=== PATIENT | female | born 1985 | race African-American/Black ===

== ENCOUNTER 2016-09-21 19:34 | Emergency (ER) | payer OTHER ==
[~2016-09-21] VITALS: Ht 165.1 cm; Wt 39.0 kg
[~2016-09-21 19:34] MED LIST: ACET325T96 PO; CALC600T9 PO; CPR500 PO; DILT120C68 PO; DIPH25CA37 PO; DOCU-94 PO; FENOFIBRATE PO; FURO40TA3 PO; IMURAN PO; LBT/100 PO; LORA-741 PO; MULT-506 PO; ONDA4TAB10 SL; PLQ200 PO; PRLSR20 PO; SENNEXT PO
[2016-09-21 19:38] VITALS: TEMP 37; Ht 165.1 cm; Wt 39.0 kg
[2016-09-21 20:52] VITALS: O2SAT 100
[2016-09-21] MEDS ORDERED: SODIUM CHLORIDE 0.9% 1000ML 500 ML IV STA (21:01)
[2016-09-21] MEDS ORDERED: SODIUM CHLORIDE 0.9% 1000ML 1,000 ML IV STA (21:01)
--- NOTE | 2016-09-21 21:10 | EMERGENCY ROOM VISIT NOTE ---
History Report prepared by Marcos: Molina Rodriguez Under the Supervision of: Dr. Varinder Robbins M.D. First contact with patient: 20:56 Chief Complaint: FLU LIKE SX Stated Complaint: HEADACHE,SOB,FATIGUE,CONGESTION,FLU History of Present Illness The patient is a 31 year old female who presents to the Emergency Room with complaints of a persistent illness beginning 2 to 3 days ago. She notes that she has been becoming short of breath and fatigued with mild physical activity, and notes having a subjective fever, productive cough with yellow sputum, congestion, and nausea. She denies having any vomiting or diarrhea, or foul smelling urine. She has taken Tylenol for the fever. The patient states she has lupus and T10 transverse myelitis and uses a wheelchair as she has no function of her legs. The patient notes occasionally feeling heart palpitations and that she is on heart medication. She did not receive the flu shot this year. She last ate this morning. Source of History: patient Onset: 2 to 3 days ago Position: other (global) Quality: other (illness) Timing: other (persistent) Associated Symptoms: + cough, + fevers, + nausea, No diarrhea, No urinary symptoms, No vomiting Review of Systems See HPI for pertinent positives & negatives. A total of 10 systems reviewed and were otherwise negative. Past Medical & Surgical Medical Problems: (1) Lupus (2) Osteomyelitis (3) Transverse myelitis Family History Diabetes mellitus Hypertension Social History Smoking Status: Never Smoker Alcohol Use: none Drug Use: none Marital Status: single Housing Status: lives with family Occupation Status: disabled Current/Historical Medications Scheduled Albuterol Hfa (Ventolin Hfa), 2 PUFFS INH Q4 Azathioprine (Imuran), 75 MG PO DAILY Calcium Carbonate-Vitamin D (Calcium + D), 500 MG PO BID Cholecalciferol (Vitamin D3), 1,000 UNITS PO DAILY Docusate Sodium (Colace), 100 MG PO DAILY Fenofibrate (Tricor), 200 MG PO DAILY Ferrous Sulfate (Ferrous Sulfate), TAB PO DAILY Hydroxychloroquine Sulfate (Plaquenil), 200 MG PO DAILY Metoprolol Succ (Toprol Xl) (Toprol-Xl), 25 MG PO DAILY Multivitamin (Multivitamin), 1 TAB PO DAILY Oxybutynin Chloride (Ditropan), 5 MG PO TID Potassium Ext Rel (Klor-Con), 20 MEQ PO BID Scheduled PRN Senna (Bulk) (Senna), 2 TAB PO DAILY PRN for Constipation Allergies Coded Allergies: Apricot (Verified Allergy, Severe, LIPS AND MOUTH SWELL, 09/21/16) Black Pepper (Verified Allergy, Severe, LIPS AND MOUTH SWELL, 09/21/16) Carrot (Verified Allergy, Severe, MOUTH AND LIPS SWELL, 09/21/16) Celery (Verified Allergy, Severe, LIPS AND MOUTH SWELL, 09/21/16) [place] (Verified Allergy, Severe, LIPS AND MOUTH SWELL, 09/21/16) Fish Allergy (Verified Allergy, Severe, ANAPHYLAXIS, 09/21/16) Lemon (Verified Allergy, Severe, MOUTH AND LIPS SWOLLEN, 09/21/16) Pea (Verified Allergy, Severe, LIPS AND MOUTH SWELL, 09/21/16) Peanut (Verified Allergy, Severe, ANAPHYLAXIS, 09/21/16) [place] (Verified Allergy, Severe, ANAPHYLAXIS, 09/21/16) Shellfish (Verified Allergy, Severe, ANAPHYLAXIS, 09/21/16) Adhesives (Verified Allergy, Intermediate, SKIN GETS RED AND PAINFUL, 09/21) Blueberry (Verified Allergy, Intermediate, LIPS AND MOUTH SWELL, 09/21/16) Dust (Verified Allergy, Intermediate, SNEEZING AND COUGHING, 09/21/16) Latex1 -Allergic Contact Dermititis (Verified Allergy, Intermediate, SKIN GETS RED AND PAINFUL, 09/21/16) Molds and Smuts (Verified Allergy, Intermediate, SNEEZING AND COUGHING, ) Ertapenem (Unverified Allergy, Unknown, HIVES, 09/21/16) Milk (Verified Adverse Reaction, Unknown, GI SYMPTOMS, 09/21/16) Lips and mouth swell when drinking milk, however pt does eat cheese Uncoded Allergies: carmichael noe (Allergy, Intermediate, lips and mouth swell, 10/28/14) Physical Exam Vital Signs Date Time Temp Pulse Resp B/P Pulse Ox O2 Delivery O2 Flow Rate FiO2 09/21/16 23:20 98 16 132/79 100 Room Air 09/21/16 22:30 91 16 114/79 09/21/16 21:20 95 09/21/16 20:52 100 Room Air 09/21/16 20:51 93 18 130/84 100 Room Air 09/21/16 19:38 37.0 115 18 112/82 100 Room Air Physical Exam GENERAL: Patient is in no acute distress. HEENT: No acute trauma, normocephalic atraumatic, mucous membranes moist, no nasal congestion, no scleral icterus. No throat erythema or exudate. NECK: No stridor, no adenopathy, no meningismus, trachea is midline. LUNGS: Clear to auscultation bilaterally, no wheeze, no rhonchi, breath sounds equal. HEART: Mildly tachycardic with regular rhythm; no murmurs. ABDOMEN: Soft, nontender, bowel sounds positive, no hernias, no peritonitis. EXTREMITIES: No cyanosis or edema, full range of motion of all the joints without pain or difficulty, no signs for acute trauma. NEUROLOGIC: Awake and oriented x3. Paraplegia consistent with T10 transverse myelitis. SKIN: No rash, no jaundice, no diaphoresis. Medical Decision & Procedures ER Provider Diagnostic Interpretation: Radiology results are stated below per my review and radiologist interpretation: CHEST ONE VIEW PORTABLE FINDINGS: The cardiac and mediastinal contours are normal. There is no evidence of focal pulmonary consolidation. There is no evidence of failure. No pleural effusions are visualized.[ There is a thoracolumbar scoliosis IMPRESSION: No active disease in the chest. Electronically signed by: Bull Robins M.D. 09/21/2016 9:21 PM Dictated Date/Time: 09/21/2016 9:21 PM Laboratory Results 09/21/16 21:50 Red Blood Count 4.44, Mean Corpuscular Volume 84.9, Mean Corpuscular Hemoglobin 29.5, Mean Corpuscular Hemoglobin Concent 34.7, Mean Platelet Volume 10.1, Neutrophils (%) (Auto) 66.2, Lymphocytes (%) (Auto) 20.8, Monocytes (%) (Auto) 7.6, Eosinophils (%) (Auto) 4.4, Basophils (%) (Auto) 0.7, Neutrophils # (Auto) 5.85, Lymphocytes # (Auto) 1.84, Monocytes # (Auto) 0.67, Eosinophils # (Auto) 0.39, Basophils # (Auto) 0.06 09/21/16 21:50 Test 09/21/16 21:45 09/21/16 21:50 09/21/16 22:06 Influenza Type A Antigen Neg for Influ A (NEG) Influenza Type B Antigen Neg for Influ B (NEG) White Blood Count 8.84 K/uL (4.8-10.8) Red Blood Count 4.44 M/uL (4.2-5.4) Hemoglobin 13.1 g/dL (12.0-16.0) Hematocrit 37.7 % (37-47) Mean Corpuscular Volume 84.9 fL (80-100) Mean Corpuscular Hemoglobin 29.5 pg (25-34) Mean Corpuscular Hemoglobin Concent 34.7 g/dl (32-36) Platelet Count 385 K/uL (130-400) Mean Platelet Volume 10.1 fL (7.4-10.4) Neutrophils (%) (Auto) 66.2 % Lymphocytes (%) (Auto) 20.8 % Monocytes (%) (Auto) 7.6 % Eosinophils (%) (Auto) 4.4 % Basophils (%) (Auto) 0.7 % Neutrophils # (Auto) 5.85 K/uL (1.4-6.5) Lymphocytes # (Auto) 1.84 K/uL (1.2-3.4) Monocytes # (Auto) 0.67 K/uL (0.11-0.59) Eosinophils # (Auto) 0.39 K/uL (0-0.5) Basophils # (Auto) 0.06 K/uL (0-0.2) RDW Standard Deviation 52.1 fL (36.4-46.3) RDW Coefficient of Variation 16.6 % (11.5-14.5) Immature Granulocyte % (Auto) 0.3 % Immature Granulocyte # (Auto) 0.03 K/uL (0.00-0.02) Prothrombin Time 13.1 SECONDS (9.0-12.0) Prothromb Time International Ratio 1.2 (0.9-1.1) Activated Partial Thromboplast Time 32.4 SECONDS (21.0-31.0) Partial Thromboplastin Ratio 1.2 Anion Gap 10.0 mmol/L (3-11) Est Creatinine Clear Calc Drug Dose 87.2 ml/min Estimated GFR () 142.2 Estimated GFR (Non- 122.7 BUN/Creatinine Ratio 21.2 (10-20) Calcium Level 9.3 mg/dl (8.5-10.1) Magnesium Level 2.0 mg/dl (1.8-2.4) Total Bilirubin 0.4 mg/dl (0.2-1) Aspartate Amino Transf (AST/SGOT) 50 U/L (15-37) Alanine Aminotransferase (ALT/SGPT) 59 U/L (12-78) Alkaline Phosphatase 84 U/L (45-117) Troponin I < 0.015 ng/ml (0-0.045) Total Protein 8.2 gm/dl (6.4-8.2) Albumin 3.9 gm/dl (3.4-5.0) Globulin 4.3 gm/dl (2.5-4.0) Albumin/Globulin Ratio 0.9 (0.9-2) Urine Color YELLOW Urine Appearance CLEAR (CLEAR) Urine pH 7.0 (4.5-7.5) Urine Specific [place] 1.000 (1.000-1.030) Urine Protein NEG (NEG) Urine Glucose (UA) NEG (NEG) Urine Ketones NEG (NEG) Urine Occult Blood NEG (NEG) Urine Nitrite NEG (NEG) Urine Bilirubin NEG (NEG) Urine Urobilinogen NEG (NEG) Urine Leukocyte Esterase NEG (NEG) Laboratory results reviewed by me. Medications Administered Medications (Trade) Dose Ordered Sig/Moustapha Route Start Time Stop Time Status Last Admin Dose Admin Sodium Chloride 500 ml @ 999 mls/hr Q31M STAT IV 09/21/16 21:01 09/21/16 21:31 DC 09/21/16 21:53 999 MLS/HR Sodium Chloride (Nss 1000ml) 1,000 ml @ 200 mls/hr Q5H STAT IV 09/21/16 21:01 09/22/16 02:00 09/21/16 21:53 200 MLS/HR Albuterol (Ventolin Hfa Inhaler) 3 puffs NOW ONCE INH 09/21/16 23:00 09/21/16 23:01 DC 09/21/16 23:21 3 PUFFS ECG Indication: other (illness) Rate (beats per minute): 98 Rhythm: normal sinus Findings: no acute ischemic change, other (old lateral infarct) ED Course 2057: The patient was evaluated in room B3B. A complete history and physical exam was performed. 2100: Ordered NSS 1,000 ml @ 200 mls/hr IV, and NSS 500 ml @ 999 mls/hr IV. 2300: Ordered Albuterol 3 puffs INH. 2305: Reevaluated the patient. Discussed results and discharge instructions: She verbalized understanding and agreement. The patient is ready for discharge. Medical Decision Differentials include bronchitis, pneumonia, dehydration, electrolyte imbalance , anemia, UTI, and influenza. There is no leukocytosis or concerning anemia. No significant electrolyte abnormality, kidney failure, hepatitis. EKG shows a sinus rhythm, no acute ischemia. Cardiac enzyme testing 1 is not consistent with acute cardiac injury. Chest x-ray does not show pneumonia or CHF. There is no mediastinal widening. Influenza testing is negative. Blood cultures are pending. Urinalysis does not show infection. On exam, the patient was not febrile, toxic or hypoxic. The patient received IV saline, she was given albuterol via MDI. The patient has an upper respiratory infection which has caused a bronchitis. She is stable for discharge, antibiotics are not indicated. She was reassured. She will rest, hydration was encouraged. She can use the albuterol for cough and congestion. Close outpatient family doctor follow-up was suggested. Impression Primary Impression: Acute bronchitis Scribe Attestation The scribe's documentation has been prepared under my direction and personally reviewed by me in its entirety. I confirm that the note above accurately reflects all work, treatment, procedures, and medical decision making performed by me. Departure Information Dispostion Home / Self-Care Prescriptions Albuterol Hfa (VENTOLIN HFA) 200 Puffs/[id number] Mcg Aers 2 PUFFS INH Q4, #1 INHALER Prov: Varinder Robbins M.D. 09/21/16 Referrals Jewel Wallace M.D. (PCP) Patient Instructions My [facility] Additional Instructions albuterol 2 puffs every 4 hours to help the cough and breathing rest fluids--stay well hydrated see your fam md this week return for worsening symptoms no pneumonia by xray today
--- NOTE | 2016-09-21 21:23 | DIAGNOSTIC IMAGING REPORT ---
CHEST ONE VIEW PORTABLE CLINICAL HISTORY: Respiratory distress COMPARISON STUDY: 06/24/2016 FINDINGS: The cardiac and mediastinal contours are normal. There is no evidence of focal pulmonary consolidation. There is no evidence of failure. No pleural effusions are visualized.[ There is a thoracolumbar scoliosis IMPRESSION: No active disease in the chest. Electronically signed by: Bull Robins M.D. 09/21/2016 9:21 PM Dictated Date/Time: 09/21/2016 9:21 PM
[2016-09-21] MEDS ORDERED: FENO200C6 PO (21:29)
[2016-09-21] MEDS ORDERED: DOCU-94 PO (21:30)
[2016-09-21] MEDS ORDERED: CHOL1000 PO (21:33)
[2016-09-21] MEDS ORDERED: POTA20TA16 PO (21:39)
[2016-09-21] MEDS ORDERED: OXYB5TAB74 PO (21:41)
[2016-09-21] MEDS ORDERED: METO25TA3 PO (21:43)
[2016-09-21] MEDS ORDERED: AZAT50TA5 PO (21:49)
[2016-09-21 22:04] LABS: BASO % 0.7 %; BASO ABS # 0.06 K/uL (0-0.2); COMPLETE YES; EOS % 4.4 %; HEMATOCRIT 37.7 % (37-47); IG% 0.3 %; LYMPH % 20.8 %; LYMPH ABS # 1.84 K/uL (1.2-3.4); MEAN CELL VOLUME 84.9 fL (80-100); MEAN CORPUSCULAR HEMOGLOBIN 29.5 pg (25-34); MEAN CORPUSCULAR HGB CONC 34.7 g/dl (32-36); MEAN PLATELET VOLUME 10.1 fL (7.4-10.4); MONO % 7.6 %; NEUT % 66.2 %; PLATELET COUNT 385 K/uL (130-400); RED BLOOD COUNT 4.44 M/uL (4.2-5.4); WHITE BLOOD COUNT 8.84 K/uL (4.8-10.8)
[2016-09-21 22:15] LABS: INR 1.2 (0.9-1.1); PARTIAL THROMBOPLASTIN RATIO 1.2; PROTHROMBIN TIME (PATIENT) 13.1 SECONDS (9.0-12.0)
[2016-09-21 22:21] LABS: URINE APPEARANCE CLEAR (CLEAR); URINE BILIRUBIN NEG (NEG); URINE COLOR YELLOW; URINE NITRITE NEG (NEG); UROBILINOGEN NEG (NEG); ZZURINE CULT IF INDIC CATH NO
[2016-09-21 22:24] LABS: ALT/SGPT 59 U/L (12-78); BLOOD UREA NITROGEN 12 mg/dl (7-18); BUN/CREATININE RATIO 21.2 (10-20); CALCIUM 9.3 mg/dl (8.5-10.1); CARBON DIOXIDE 20 mmol/L (21-32); CHLORIDE 107 mmol/L (98-107); CREATININE 0.57 mg/dl (0.60-1.20); GLUCOSE 82 mg/dl (70-99); POTASSIUM 3.6 mmol/L (3.5-5.1); SODIUM 137 mmol/L (136-145)
[2016-09-21 22:25] LABS: MANUAL MICROSCOPIC REQUIRED? NO; REVIEW REQ? NO
[2016-09-21 22:29] LABS: ALB/GLOB RATIO 0.9 (0.9-2); ALKALINE PHOSPHATASE 84 U/L (45-117); AST/SGOT 50 U/L (15-37)
[2016-09-21] MEDS ORDERED: ALBUTEROL HFA 8 GM INHALER INH ONE (23:00)
[2016-09-21] MEDS ORDERED: VNTHFA/IN INH (23:01)
[2016-09-21 23:20] VITALS: BP 132/79; PULSE 98; O2SAT 100
[2017-02-13] MEDS ORDERED: FERR324T4 PO (16:12)
== END 2016-09-21 23:31 | disposition home or self-care (01) ==
LOC: C.EDB 19:36
DX: J20.9 Acute bronchitis, unspecified (principal); L93.0 Discoid lupus erythematosus; M86.9 Osteomyelitis, unspecified

== ENCOUNTER 2016-10-08 18:31 | Emergency (ER) | payer OTHER ==
[~2016-10-08 18:31] MED LIST changes: -ACET325T96 PO; +AZAT50TA5 PO; +CHOL1000 PO; -CPR500 PO; -DILT120C68 PO; -DIPH25CA37 PO; +FENO200C6 PO; -FENOFIBRATE PO; -FURO40TA3 PO; -IMURAN PO; -LBT/100 PO; -LORA-741 PO; +METO25TA3 PO; -ONDA4TAB10 SL; +OXYB5TAB74 PO; -PLQ200 PO; +POTA20TA16 PO; -PRLSR20 PO; +VNTHFA/IN INH
[2016-10-08 18:47] VITALS: TEMP 37; Ht 165.1 cm
--- NOTE | 2016-10-08 20:06 | DIAGNOSTIC IMAGING REPORT ---
Venous Doppler right leg RIGHT VENOUS DOPP LOWER EXT UNILAT CLINICAL HISTORY: Right thigh swelling Right pain. Edema. TECHNIQUE: Ultrasound COMPARISON STUDY: None FINDINGS: Normal study IMPRESSION: Normal study Electronically signed by: Gato Mcneill M.D. 10/08/2016 8:05 PM Dictated Date/Time: 10/08/2016 8:04 PM
[2016-10-08] MEDS ORDERED: LORAZEPAM 2 MG/ML 1 ML VIAL ONE (20:34)
--- NOTE | 2016-10-08 20:47 | DIAGNOSTIC IMAGING REPORT ---
RIGHT FEMUR 2 VIEWS ROUTINE CLINICAL HISTORY: Right thigh swelling Right pain. Edema. COMPARISON: None. DISCUSSION: The bones and joint spaces appear intact. There is no evidence of fracture, dislocation or bony disease. There is no evidence for soft tissue swelling. IMPRESSION: Negative study. Electronically signed by: Gato Mcneill M.D. 10/08/2016 8:46 PM Dictated Date/Time: 10/08/2016 8:45 PM
[2016-10-08 21:34] VITALS: BP 103/64; PULSE 95; O2SAT 99
--- NOTE | 2016-10-09 11:45 | EMERGENCY ROOM VISIT NOTE ---
History First contact with patient: 18:56 Chief Complaint: SWELLING TO EXTREMITY Stated Complaint: SWELLING ON RIGHT THIGH History of Present Illness The patient is a 31 year old female who presents to the Emergency Room with complaints of swelling and dull achiness to her right thigh. The patient states that she noticed her symptoms 2 or 3 days ago and has had notable swelling. She is a paraplegic and does not have distinct sensation to her lower extremities. She does feel a deep ache however, which is atypical for her. She has not had fever, chills, chest pain, chest tightness, or shortness of breath. She reports having a thrombophlebitis of this leg after a femoral line placement several years ago. She does not regularly have discomfort like this. She states that she could have dislocated her hip after moving awkwardly a few days ago, but again she does not feel pain and is not able to tell. She rates her overall discomfort a 0/10. Review of Systems More than 10 systems were reviewed and otherwise negative with the exception of history of present illness. Past Medical/Surgical History Medical Problems: (1) Lupus (2) Osteomyelitis (3) Transverse myelitis Family History Diabetes mellitus Hypertension Social History Smoking Status: Never Smoker Alcohol Use: none Drug Use: none Marital Status: single Housing Status: lives with family Occupation Status: disabled Current/Historical Medications Scheduled Albuterol Hfa (Ventolin Hfa), 2 PUFFS INH Q4 Azathioprine (Imuran), 75 MG PO DAILY Calcium Carbonate-Vitamin D (Calcium + D), 500 MG PO BID Cholecalciferol (Vitamin D3), 1,000 UNITS PO DAILY Docusate Sodium (Colace), 100 MG PO DAILY Fenofibrate (Tricor), 200 MG PO DAILY Ferrous Sulfate (Ferrous Sulfate), TAB PO DAILY Hydroxychloroquine Sulfate (Plaquenil), 200 MG PO DAILY Metoprolol Succ (Toprol Xl) (Toprol-Xl), 25 MG PO DAILY Multivitamin (Multivitamin), 1 TAB PO DAILY Oxybutynin Chloride (Ditropan), 5 MG PO TID Potassium Ext Rel (Klor-Con), 20 MEQ PO BID Scheduled PRN Senna (Bulk) (Senna), 2 TAB PO DAILY PRN for Constipation Allergies Coded Allergies: Apricot (Verified Allergy, Severe, LIPS AND MOUTH SWELL, 10/08/16) Black Pepper (Verified Allergy, Severe, LIPS AND MOUTH SWELL, 10/08/16) Carrot (Verified Allergy, Severe, MOUTH AND LIPS SWELL, 10/08/16) Celery (Verified Allergy, Severe, LIPS AND MOUTH SWELL, 10/08/16) [place] (Verified Allergy, Severe, LIPS AND MOUTH SWELL, 10/08/16) Fish Allergy (Verified Allergy, Severe, ANAPHYLAXIS, 10/08/16) Lemon (Verified Allergy, Severe, MOUTH AND LIPS SWOLLEN, 10/08/16) Pea (Verified Allergy, Severe, LIPS AND MOUTH SWELL, 10/08/16) Peanut (Verified Allergy, Severe, ANAPHYLAXIS, 10/08/16) [place] (Verified Allergy, Severe, ANAPHYLAXIS, 10/08/16) Shellfish (Verified Allergy, Severe, ANAPHYLAXIS, 10/08/16) Adhesives (Verified Allergy, Intermediate, SKIN GETS RED AND PAINFUL, 10/08) Blueberry (Verified Allergy, Intermediate, LIPS AND MOUTH SWELL, 09/21/16) Dust (Verified Allergy, Intermediate, SNEEZING AND COUGHING, 10/08/16) Latex1 -Allergic Contact Dermititis (Verified Allergy, Intermediate, SKIN GETS RED AND PAINFUL, 10/08/16) Molds and Smuts (Verified Allergy, Intermediate, SNEEZING AND COUGHING, ) Ertapenem (Unverified Allergy, Unknown, HIVES, 10/08/16) Milk (Verified Adverse Reaction, Unknown, GI SYMPTOMS, 10/08/16) Lips and mouth swell when drinking milk, however pt does eat cheese Uncoded Allergies: carmichael noe (Allergy, Intermediate, lips and mouth swell, 10/28/14) Physical Exam Vital Signs Date Time Temp Pulse Resp B/P Pulse Ox O2 Delivery O2 Flow Rate FiO2 10/08/16 21:34 95 18 103/64 99 10/08/16 21:30 95 18 103/64 99 Room Air 10/08/16 18:47 37.0 82 18 99 Room Air Pain Rating (0-10): 0 Physical Exam VITALS: Vitals are noted on the nurse's note and reviewed by myself. Vital signs stable. GENERAL: Well-developed, well-nourished, female, who is in no acute distress and resting comfortably. Patient is cooperative with the examination. HEAD: Normocephalic atraumatic. HEART: Regular rate and rhythm without murmurs gallops or rubs. LUNGS: Clear to auscultation bilaterally without wheezes, rales or rhonchi. No retractions or accessory muscle use. MUSCULOSKELETAL: There is mild swelling appreciated in the right thigh when compared to the left. The patient does not have sensation throughout the thigh which is chronic. No palpable cords or erythema appreciated. NEURO: Patient was alert and oriented to person place and time. CN II through XII grossly intact. Medical Decision & Procedures ER Provider Diagnostic Interpretation: Venous Doppler right leg RIGHT VENOUS DOPP LOWER EXT UNILAT CLINICAL HISTORY: Right thigh swelling Right pain. Edema. TECHNIQUE: Ultrasound COMPARISON STUDY: None FINDINGS: Normal study IMPRESSION: Normal study RIGHT FEMUR 2 VIEWS ROUTINE CLINICAL HISTORY: Right thigh swelling Right pain. Edema. COMPARISON: None. DISCUSSION: The bones and joint spaces appear intact. There is no evidence of fracture, dislocation or bony disease. There is no evidence for soft tissue swelling. IMPRESSION: Negative study. ED Course Physical exam and history were performed. Nursing notes and EMR were reviewed. Patient appears to have swelling to her right thigh without distinct injury. The patient is paraplegic and does not have pain sensation in this area, but does describe a pressure that is atypical for her. Ultrasound and x-rays were performed. There is no evidence of DVT on ultrasound, and no bony abnormality appreciated on x-ray. Overall the patient's symptoms may be a dependent edema, however based on her past medical history did recommend that she have close follow-up with her PCP. The patient is to elevate her leg for comfort and decrease swelling. The patient was very pleased with this and voiced understanding. She will contact her primary care physician's office and was otherwise invited the ER with any new, worsening, or concerning symptoms. The chart was completed utilizing [employer] Speech Voice Recognition Software. Grammatical errors, random word insertions, pronoun errors, and incomplete sentences are an occasional consequence of this system due to software limitations, ambient noise, and hardware issues. Any formal questions or concerns about the content, text, or information contained within the body of this dictation should be directly addressed to the provider for clarification. . Medical Decision Differential diagnosis: Etiologies such as DVT, musculoskeletal, infection, joint effusion, trauma, lymphedema, idiopathic, CHF, as well as others were entertained.. Impression Primary Impression: Swelling of lower extremity Departure Information Dispostion Home / Self-Care Condition GOOD Forms HOME CARE DOCUMENTATION FORM, IMPORTANT VISIT INFORMATION Patient Instructions My [facility] Additional Instructions You were seen and evaluated today on an emergency basis only. This is not a substitute for, or an effort to provide, complete comprehensive medical care. It is not possible to recognize and treat all injuries or illnesses in a single emergency department visit. For this reason it is recommended that you followup with your primary care physician as scheduled for ongoing care and evaluation. Elevate your leg for additional relief of symptoms. You are welcome to return to the emergency department anytime with new, worsening, or concerning symptoms.
[2017-02-13] MEDS ORDERED: FERR324T4 PO (16:12)
== END 2016-10-08 21:35 | disposition home or self-care (01) ==
LOC: C.EDB 18:32 → C.EDD 21:35
DX: M79.89 Other specified soft tissue disorders (principal); L93.0 Discoid lupus erythematosus; M86.9 Osteomyelitis, unspecified

== ENCOUNTER 2017-02-13 16:41 | Emergency (ER) | payer OTHER ==
[~2017-02-13] VITALS: Ht 165.1 cm; Wt 40.0 kg
[~2017-02-13 16:41] MED LIST changes: +FERR324T4 PO
[2017-02-13 16:43] VITALS: TEMP 37.2; Ht 165.1 cm; Wt 40.0 kg
[2017-02-13] MEDS ORDERED: SODIUM CHLORIDE 0.9% 1000ML 1,000 ML IV STA ×2 (17:12→19:36)
--- NOTE | 2017-02-13 17:32 | DIAGNOSTIC IMAGING REPORT ---
CHEST ONE VIEW PORTABLE CLINICAL HISTORY: Chest pressure, tachycardia, palpitations. Left arm pain and weakness. COMPARISON STUDY: 09/21/2016 FINDINGS: The cardiac and mediastinal contours are normal. There is no evidence of focal pulmonary consolidation. There is no evidence of failure. No pleural effusions are visualized.[ There is a thoracolumbar scoliosis. IMPRESSION: No active disease in the chest. Electronically signed by: Bull Robins M.D. 02/13/2017 5:31 PM Dictated Date/Time: 02/13/2017 5:30 PM
[2017-02-13 17:54] LABS: BASO ABS # 0.06 K/uL (0-0.2); COMPLETE YES; EOS % 2.2 %; HEMATOCRIT 35.8 % (37-47); IG% 0.5 %; LYMPH ABS # 1.57 K/uL (1.2-3.4); MEAN CELL VOLUME 84.2 fL (80-100); MEAN CORPUSCULAR HEMOGLOBIN 29.4 pg (25-34); MEAN CORPUSCULAR HGB CONC 34.9 g/dl (32-36); MEAN PLATELET VOLUME 9.4 fL (7.4-10.4); MONO % 11.5 %; NEUT % 59.8 %; PLATELET COUNT 445 K/uL (130-400); RED BLOOD COUNT 4.25 M/uL (4.2-5.4); WHITE BLOOD COUNT 6.27 K/uL (4.8-10.8)
[2017-02-13 18:04] LABS: INR 1.2 (0.9-1.1)
[2017-02-13 18:16] LABS: ALT/SGPT 81 U/L (12-78); BLOOD UREA NITROGEN 13 mg/dl (7-18); BUN/CREATININE RATIO 15.1 (10-20); CALCIUM 8.8 mg/dl (8.5-10.1); CARBON DIOXIDE 24 mmol/L (21-32); CHLORIDE 108 mmol/L (98-107); CREATININE 0.86 mg/dl (0.60-1.20); GLUCOSE 76 mg/dl (70-99); MAGNESIUM 1.7 mg/dl (1.8-2.4); POTASSIUM 3.6 mmol/L (3.5-5.1); SODIUM 141 mmol/L (136-145)
[2017-02-13 18:27] LABS: ALB/GLOB RATIO 0.9 (0.9-2); ALKALINE PHOSPHATASE 81 U/L (45-117); AST/SGOT 76 U/L (15-37)
[2017-02-13] MEDS ORDERED: OPTIRAY 320 IV PRN (18:30)
[2017-02-13] MEDS ORDERED: DiphenhydrAMINE HCL 50 MG/ML VIAL IV STA (19:36)
[2017-02-13] MEDS ORDERED: DiphenhydrAMINE HCL 50 MG/ML VIAL ONE (19:37)
--- NOTE | 2017-02-13 19:46 | DIAGNOSTIC IMAGING REPORT ---
CT ANGIOGRAM OF THE CHEST CLINICAL HISTORY: Cough, atypical chest pain, elevated d-dimer COMPARISON STUDY: Chest x-ray dated 02/13/2017 TECHNIQUE: Following the IV administration of 66 mL of [id number]-320, CT angiogram of the thorax was performed from the thoracic inlet to the lung bases utilizing the pulmonary embolus protocol. Images are reviewed in the axial, sagittal, and coronal planes. IV contrast was administered without complication. MIP imaging was performed. A dose lowering technique was utilized adhering to the principles of ALARA. CT DOSE: 176.41 mGy.cm FINDINGS: No pathologically enlarged axillary mediastinal or hilar lymph nodes were visualized. There was no evidence of thoracic aortic dilatation. There were no pulmonary artery filling defects to indicate acute pulmonary embolism. No pleural effusions are visualized. There was no evidence of focal pulmonary consolidation. The examination is compromised due to respiratory motion artifact IMPRESSION: 1. No evidence of pulmonary embolism 2. No evidence of focal pulmonary consolidation 3. No evidence of pathologic adenopathy Electronically signed by: Bull Robins M.D. 02/13/2017 7:44 PM Dictated Date/Time: 02/13/2017 7:41 PM
[2017-02-13 20:20] LABS: URINE APPEARANCE CLEAR (CLEAR); URINE BILIRUBIN NEG (NEG); URINE COLOR YELLOW; URINE NITRITE NEG (NEG); URINE SPECIFIC GRAVITY 1.017 (1.000-1.030); UROBILINOGEN NEG (NEG)
[2017-02-13 20:32] LABS: MANUAL MICROSCOPIC REQUIRED? NO; REVIEW REQ? NO
[2017-02-13] MEDS ORDERED: MAGNESIUM SULFATE 1GM / D5W 1 GM BAG IV STA (20:39)
[2017-02-13] MEDS ORDERED: ALUMINUM/MAGNESIUM SUSP 30 ML UDC PO STA (20:50)
[2017-02-13] MEDS ORDERED: ACETAMINOPHEN 325 MG TAB PO STA (20:50)
[2017-02-13] MEDS ORDERED: PANTOprazole INJ 40 MG in SYRINGE 0 ML IV ONE (21:00)
[2017-02-13] MEDS ORDERED: HYDR200T5 PO (21:45)
--- NOTE | 2017-02-13 23:06 | EMERGENCY ROOM VISIT NOTE ---
History Report prepared by Marcos: rSinivasan Duong Under the Supervision of: Dr. Roxann Moffett D.O. First contact with patient: 16:48 Chief Complaint: PALPITATIONS Stated Complaint: SORETHROAT,FATIGUE,WEAKNESS,LF ARM PAIN,PALPITATIO History of Present Illness The patient is a 31 year old female who presents to the Emergency Room with complaints of a resolving generalized illness that started yesterday. She rates her pain as a 3/10 in severity. The patient states that she was experiencing shooting pain from her left shoulder to her left arm, fatigue, shortness of breath, fever, dry coughing, a sore throat, and heart palpitations. She reports that yesterday her rate was around 116 and she felt chest tightness. She states that today her temperature was 98.4 and she was no longer experiencing heart palpitations, but admits she still has a sore throat and now abdominal pain. The patient states that she usually is tachycardic, which is worsened with movement, hypertensive, and has edema to her lower extremities when she sits for long periods of time. She states that she has been constipated for over a week, but was able to have a bowel movement yesterday. The patient admits that she has been around a family member who has been sick recently. She states that she currently takes a blood pressure medication due to her history of kidney failure. The patient states that her kidneys have been functioning well lately and her blood pressure does has gone down. She also reports a history of lupus, nephritis, and recurrent UTIS, which she has recently finished her antibiotics for. The patient denies rhinorrhea and urinary symptoms. Source of History: patient Onset: yesterday Position: other (global) Symptom Intensity: 3/10 Timing: other (resolving) Associated Symptoms: + fevers, + sorethroat, + cough, + chest pain, + SOB, + fatigue, No urinary symptoms Review of Systems See HPI for pertinent positives & negatives. A total of 10 systems reviewed and were otherwise negative. Past Medical & Surgical Medical Problems: (1) Lupus (2) Osteomyelitis (3) Transverse myelitis Family History Diabetes mellitus FHx: cancer Hypertension Kidney disease Kidney stones Lung disease Social History Smoking Status: Never Smoker Alcohol Use: none Drug Use: none Marital Status: single Housing Status: lives with family Occupation Status: disabled Current/Historical Medications Scheduled Azathioprine (Imuran), 75 MG PO DAILY Calcium Carbonate-Vitamin D (Calcium + D), 500 MG PO BID Cholecalciferol (Vitamin D3), 1,000 UNITS PO DAILY Docusate Sodium (Colace), 100 MG PO DAILY Fenofibrate (Tricor), 200 MG PO DAILY Ferrous Sulfate (Ferrous Sulfate), 1 TAB PO DAILY Hydroxychloroquine Sulfate (Plaquenil), 100 MG PO DAILY Metoprolol Succ (Toprol Xl) (Toprol-Xl), 25 MG PO DAILY Multivitamin (Multivitamin), 1 TAB PO DAILY Potassium Ext Rel (Klor-Con), 20 MEQ PO DAILY Scheduled PRN Senna (Bulk) (Senna), 2 TAB PO DAILY PRN for Constipation Allergies Coded Allergies: Apricot (Verified Allergy, Severe, LIPS AND MOUTH SWELL, 10/08/16) Black Pepper (Verified Allergy, Severe, LIPS AND MOUTH SWELL, 10/08/16) Carrot (Verified Allergy, Severe, MOUTH AND LIPS SWELL, 10/08/16) Celery (Verified Allergy, Severe, LIPS AND MOUTH SWELL, 10/08/16) [place] (Verified Allergy, Severe, LIPS AND MOUTH SWELL, 10/08/16) Fish Allergy (Verified Allergy, Severe, ANAPHYLAXIS, 10/08/16) Lemon (Verified Allergy, Severe, MOUTH AND LIPS SWOLLEN, 10/08/16) Pea (Verified Allergy, Severe, LIPS AND MOUTH SWELL, 10/08/16) Peanut (Verified Allergy, Severe, ANAPHYLAXIS, 10/08/16) [place] (Verified Allergy, Severe, ANAPHYLAXIS, 10/08/16) Shellfish (Verified Allergy, Severe, ANAPHYLAXIS, 10/08/16) Adhesives (Verified Allergy, Intermediate, SKIN GETS RED AND PAINFUL, 10/08) Blueberry (Verified Allergy, Intermediate, LIPS AND MOUTH SWELL, 09/21/16) Dust (Verified Allergy, Intermediate, SNEEZING AND COUGHING, 10/08/16) Latex1 -Allergic Contact Dermititis (Verified Allergy, Intermediate, SKIN GETS RED AND PAINFUL, 10/08/16) Molds and Smuts (Verified Allergy, Intermediate, SNEEZING AND COUGHING, ) Ertapenem (Unverified Allergy, Unknown, HIVES, 10/08/16) Milk (Verified Adverse Reaction, Unknown, GI SYMPTOMS, 10/08/16) Lips and mouth swell when drinking milk, however pt does eat cheese Uncoded Allergies: carmichael noe (Allergy, Intermediate, lips and mouth swell, 10/28/14) Physical Exam Vital Signs Date Time Temp Pulse Resp B/P (MAP) Pulse Ox O2 Delivery O2 Flow Rate FiO2 02/13/17 23:40 96 16 117/76 99 Room Air 02/13/17 22:34 98 02/13/17 22:20 97 20 99 02/13/17 22:05 99 28 99 02/13/17 22:01 124/69 02/13/17 21:50 103 12 100 02/13/17 21:35 106 12 100 02/13/17 21:31 129/81 02/13/17 21:20 104 16 100 02/13/17 21:05 102 20 100 02/13/17 21:01 122/76 02/13/17 20:50 101 16 100 02/13/17 20:35 111 17 100 02/13/17 20:31 118/76 02/13/17 20:20 103 25 100 02/13/17 20:05 117 26 100 02/13/17 20:01 119/83 02/13/17 19:58 117/83 02/13/17 19:58 102 16 117/83 100 Room Air 02/13/17 19:50 103 17 100 02/13/17 19:42 103/64 02/13/17 18:31 107 14 115/67 97 Room Air 02/13/17 18:30 115/67 02/13/17 18:26 105 14 02/13/17 18:11 110 18 02/13/17 17:56 111 12 02/13/17 17:41 117 24 02/13/17 17:26 120 19 02/13/17 17:20 115 02/13/17 17:15 98 Room Air 02/13/17 16:43 37.2 133 18 112/80 100 Room Air Physical Exam GENERAL: thin frail appearing, alert, well appearing, well nourished, no distress, non-toxic EYE EXAM: normal conjunctiva, PERRL and EOM's grossly intact OROPHARYNX: no exudate, no erythema, lips, buccal mucosa, and tongue normal and mucous membranes are moist NECK: supple, no nuchal rigidity, no adenopathy, non-tender LUNGS: Clear to auscultation. Normal chest wall mechanics HEART: no murmurs, S1 normal and S2 normal ABDOMEN: abdomen soft, non-tender, normo-active bowel sounds, no masses, no rebound or guarding. BACK: Back is symmetrical on inspection and there is no deformity, no midline tenderness, no CVA tenderness. SKIN: no rashes and no bruising UPPER EXTREMITIES: upper extremities are grossly normal. LOWER EXTREMITIES: No pitting edema. Bilateral weakness. Bilateral atrophy and contractures secondary to paraplegic status. NEURO EXAM: Normal sensorium, cranial nerves II-XII grossly intact, normal speech, no gross weakness of arms. Gross sensation intact. Medical Decision & Procedures ER Provider Diagnostic Interpretation: Radiology results have been interpreted by the radiologist and reviewed by me. CHEST ONE VIEW PORTABLE CLINICAL HISTORY: Chest pressure, tachycardia, palpitations. Left arm pain and weakness. COMPARISON STUDY: 09/21/2016 FINDINGS: The cardiac and mediastinal contours are normal. There is no evidence of focal pulmonary consolidation. There is no evidence of failure. No pleural effusions are visualized.[ There is a thoracolumbar scoliosis. IMPRESSION: No active disease in the chest. Electronically signed by: Bull Robins M.D. 02/13/2017 5:31 PM Dictated Date/Time: 02/13/2017 5:[address] ANGIOGRAM OF THE CHEST CLINICAL HISTORY: Cough, atypical chest pain, elevated d-dimer COMPARISON STUDY: Chest x-ray dated 02/13/2017 TECHNIQUE: Following the IV administration of 66 mL of [id number]-320, CT angiogram of the thorax was performed from the thoracic inlet to the lung bases utilizing the pulmonary embolus protocol. Images are reviewed in the axial, sagittal, and coronal planes. IV contrast was administered without complication. MIP imaging was performed. A dose lowering technique was utilized adhering to the principles of ALARA. CT DOSE: 176.41 mGy.cm FINDINGS: No pathologically enlarged axillary mediastinal or hilar lymph nodes were visualized. There was no evidence of thoracic aortic dilatation. There were no pulmonary artery filling defects to indicate acute pulmonary embolism. No pleural effusions are visualized. There was no evidence of focal pulmonary consolidation. The examination is compromised due to respiratory motion artifact IMPRESSION: 1. No evidence of pulmonary embolism 2. No evidence of focal pulmonary consolidation 3. No evidence of pathologic adenopathy Electronically signed by: Bull Robins M.D. 02/13/2017 7:44 PM Dictated Date/Time: 02/13/2017 7:41 PM Laboratory Results 02/13/17 17:40 Red Blood Count 4.25, Mean Corpuscular Volume 84.2, Mean Corpuscular Hemoglobin 29.4, Mean Corpuscular Hemoglobin Concent 34.9, Mean Platelet Volume 9.4, Neutrophils (%) (Auto) 59.8, Lymphocytes (%) (Auto) 25.0, Monocytes (%) (Auto) 11.5, Eosinophils (%) (Auto) 2.2, Basophils (%) (Auto) 1.0, Neutrophils # (Auto ) 3.75, Lymphocytes # (Auto) 1.57, Monocytes # (Auto) 0.72, Eosinophils # (Auto ) 0.14, Basophils # (Auto) 0.06 02/13/17 17:40 Test 02/13/17 17:40 02/13/17 20:06 02/13/17 22:48 White Blood Count 6.27 K/uL (4.8-10.8) Red Blood Count 4.25 M/uL (4.2-5.4) Hemoglobin 12.5 g/dL (12.0-16.0) Hematocrit 35.8 % (37-47) Mean Corpuscular Volume 84.2 fL (80-100) Mean Corpuscular Hemoglobin 29.4 pg (25-34) Mean Corpuscular Hemoglobin Concent 34.9 g/dl (32-36) Platelet Count 445 K/uL (130-400) Mean Platelet Volume 9.4 fL (7.4-10.4) Neutrophils (%) (Auto) 59.8 % Lymphocytes (%) (Auto) 25.0 % Monocytes (%) (Auto) 11.5 % Eosinophils (%) (Auto) 2.2 % Basophils (%) (Auto) 1.0 % Neutrophils # (Auto) 3.75 K/uL (1.4-6.5) Lymphocytes # (Auto) 1.57 K/uL (1.2-3.4) Monocytes # (Auto) 0.72 K/uL (0.11-0.59) Eosinophils # (Auto) 0.14 K/uL (0-0.5) Basophils # (Auto) 0.06 K/uL (0-0.2) RDW Standard Deviation 46.0 fL (36.4-46.3) RDW Coefficient of Variation 14.9 % (11.5-14.5) Immature Granulocyte % (Auto) 0.5 % Immature Granulocyte # (Auto) 0.03 K/uL (0.00-0.02) Prothrombin Time 13.0 SECONDS (9.0-12.0) Prothromb Time International Ratio 1.2 (0.9-1.1) D-Dimer 810 ug/L FEU (0-500) Anion Gap 9.0 mmol/L (3-11) Est Creatinine Clear Calc Drug Dose 59.3 ml/min Estimated GFR () 103.6 Estimated GFR (Non- 89.4 BUN/Creatinine Ratio 15.1 (10-20) Lactic Acid Level 1.3 mmol/L (0.4-2.0) Calcium Level 8.8 mg/dl (8.5-10.1) Magnesium Level 1.7 mg/dl (1.8-2.4) Total Bilirubin 0.4 mg/dl (0.2-1) Aspartate Amino Transf (AST/SGOT) 76 U/L (15-37) Alanine Aminotransferase (ALT/SGPT) 81 U/L (12-78) Alkaline Phosphatase 81 U/L (45-117) Troponin I < 0.015 ng/ml (0-0.045) Total Protein 7.2 gm/dl (6.4-8.2) Albumin 3.5 gm/dl (3.4-5.0) Globulin 3.7 gm/dl (2.5-4.0) Albumin/Globulin Ratio 0.9 (0.9-2) Thyroid Stimulating Hormone (TSH) 1.140 uIu/ml (0.300-4.500) Monoscreen NEG (NEG) Urine Color YELLOW Urine Appearance CLEAR (CLEAR) Urine pH 8.0 (4.5-7.5) Urine Specific [place] 1.017 (1.000-1.030) Urine Protein NEG (NEG) Urine Glucose (UA) NEG (NEG) Urine Ketones NEG (NEG) Urine Occult Blood NEG (NEG) Urine Nitrite NEG (NEG) Urine Bilirubin NEG (NEG) Urine Urobilinogen NEG (NEG) Urine Leukocyte Esterase NEG (NEG) Bedside Troponin I < 0.030 ng/ml (0-0.045) Laboratory results per my review. Medications Administered Medications (Trade) Dose Ordered Sig/Moustapha Route Start Time Stop Time Status Last Admin Dose Admin Sodium Chloride 1,000 ml @ 999 mls/hr Q1H1M STAT IV 02/13/17 17:12 02/13/17 18:12 DC 02/13/17 17:50 999 MLS/HR Sodium Chloride 1,000 ml @ 250 mls/hr Q4H STAT IV 02/13/17 19:36 02/13/17 23:35 DC 02/13/17 19:39 250 MLS/HR Diphenhydramine HCl (Benadryl Inj) 25 mg NOW STAT IV 02/13/17 19:36 02/13/17 19:38 DC 02/13/17 19:39 25 MG Magnesium Sulfate (Magnesium Sulfate) 2 gm NOW STAT IV 02/13/17 20:39 02/13/17 20:40 DC 02/13/17 21:13 2 GM Al Hydroxide/Mg Hydroxide (Maalox Susp) 30 ml NOW STAT PO 02/13/17 20:50 02/13/17 20:51 DC 02/13/17 21:22 30 ML Pantoprazole Sodium 40 mg/ Syringe 10 ml @ 5 mls/min NOW ONCE IV 02/13/17 21:00 02/13/17 21:01 DC 02/13/17 21:25 5 MLS/MIN Acetaminophen (Tylenol Tab) 650 mg NOW STAT PO 02/13/17 20:50 02/13/17 20:51 DC 02/13/17 21:24 650 MG ECG Indication: weakness Rate (beats per minute): 107 Rhythm: sinus tachycardia Findings: no acute ischemic change, no ectopy, other (normal axis and intervals ) ED Course 1701: The patient was evaluated in room B03. A complete history and physical exam was performed. 1711: Sodium Chloride 1000 ml @ 999 mls/hr IV. 1919: I reevaluated the patient and she reports increased chest pain and cramps. There has been no previous allergic reactions to IV dye in the past. 1935: Sodium Chloride 1000 ml @ 250 mls/hr IV. 1936: Benadryl Injection 50 mg IV. 2038: Magnesium Sulfate 2 gm IV. 2045: I reevaluated the patient and she is resting comfortably. She is still borderline tachycardic and is still experiencing some chest pressure. 2309: Pt states feeling better, updated on all results. Medical Decision The differential diagnosis includes but is not limited to: Etiologies such as premature contractions, electrolyte abnormality, cardiac dysrhythmia, thyroid dysfunction, pulmonary embolism, infection, gastrointestinal, as well as others were entertained. Medication Reconciliation: I attest that I have personally reviewed the patient' s current medication list. Blood pressure screening: Patient was found to have a slightly elevated blood pressure due to circumstances. I do not believe that the patient requires hypertension monitoring. Pt with debilitating chronic medical conditions. Recent sick contact with family member with similar symptoms but pt concerned due to symptoms and comorbidities. Pt well appearing despite complaints accounting for PMHx and chronic conditions. Pt improved here with IVF and meds. Unclear if anxiety vs mild reaction to IV contrast, no clear allergic/anaphylactic symptoms, however felt improved with benadryl and additional fluids. Tachycardia initially more likely from pain/anxiety/dehydration - all improved during hours of observation and IVF. Pt not requiring multiple doses of pain meds. Labs reassuring. No evidence of pneumonia or recurrent UTI given recent UTI, doubt bacteremia/ sepsis. Mag repleted as a precaution given symptoms. Doubt ACS, PE, tamponade , effusion, infiltrate, dissection, AAA. Pt most likely with URI similar to sick contact, however sx worse in her due to other chronic conditions. Discussed with pt f/u with her PCP, sx to watch/return for, she verbalized understanding and was agreeable with plan. Medication Reconcilliation Current Medication List: was personally reviewed by me Blood Pressure Screening Patient's blood pressure: Normal blood pressure Impression Primary Impression: Chest pain Additional Impressions: Fatigue Tachycardia Cough URI (upper respiratory infection) Scribe Attestation The scribe's documentation has been prepared under my direction and personally reviewed by me in its entirety. I confirm that the note above accurately reflects all work, treatment, procedures, and medical decision making performed by me. Departure Information Dispostion Home / Self-Care Referrals Jewel Wallace M.D. (PCP) Patient Instructions My [facility] Additional Instructions Please call and follow-up with your regular doctor regarding your recent symptoms. Please make sure you are drinking plenty of water. Please continue medications as prescribed. If you have any worsening fatigue, cough, trouble breathing, develop fevers/chills, vomiting, rash, headaches, or you have any other new or concerning symptoms, please return to the emergency room. Problem Qualifiers Primary Impression: Chest pain Chest pain type: unspecified Qualified Codes: R07.9 - Chest pain, unspecified Additional Impressions: Fatigue Fatigue type: unspecified Qualified Codes: R53.83 - Other fatigue URI (upper respiratory infection) URI type: unspecified URI Qualified Codes: J06.9 - Acute upper respiratory infection, unspecified
[2017-02-13 23:40] VITALS: BP 117/76; PULSE 96; O2SAT 99
== END 2017-02-13 23:45 | disposition home or self-care (01) ==
LOC: C.EDB 16:42
DX: R07.9 Chest pain, unspecified (principal); R00.0 Tachycardia, unspecified; J06.9 Acute upper respiratory infection, unspecified; M32.9 Systemic lupus erythematosus, unspecified; Z83.3 Family history of diabetes mellitus; Z82.49 Family history of ischemic heart disease and other diseases of the circulatory system; Z84.1 Family history of disorders of kidney and ureter

== ENCOUNTER 2020-02-01 12:38 | Observation (INO) ==
[2020-02-01] MEDS ORDERED: SODIUM CHLORIDE 0.9% 500 ML IV ONE (14:12)
--- NOTE | 2020-02-01 14:35 | Emergency Department Note ---
History of Present Illness General Chief complaint: Urinary Symptoms Stated complaint: DOC WORRIED ABOUT PYELONEPHRITIS History of Present Illness Maximum Pain Intensity: 5 This patient is a 34-year-old female who presents to the emergency department with complaints of a throbbing flank pain and lower abdominal discomfort that she has had for the last 2 days. She also reports a fever of 100 F at home. The patient has taken Tylenol with minimal relief of her symptoms. She denies any dysuria or hematuria. She has felt nauseated without vomiting. No changes in bowel movements. The patient has a history of paraplegia and performs straight caths 3 times per day. The patient was evaluated by her primary care physician who sent her here for evaluation. Home Medications Home Medications Medication Instructions Recorded Confirmed Type aspirin 81 mg PO DAILY PRN 02/01/20 02/01/20 History azathioprine 75 mg PO DAILY@139902/01/20 02/01/20 History calcium carbonate-vitamin D3 1 tab PO DAILY@139902/01/20 02/01/20 History [Oysco 500/D] cholecalciferol (vitamin D3) 25 mcg PO DAILY@139902/01/20 02/01/20 History [Vitamin D3] fenofibrate micronized 200 mg PO DAILY@139902/01/20 02/01/20 History hydroxychloroquine 200 mg PO DAILY@139902/01/20 02/01/20 History lisinopril 5 mg PO DAILY@139902/01/20 02/01/20 History metoprolol succinate 12.5 mg PO DAILY@0 02/01/20 02/01/20 History multivitamin 1 tab PO DAILY@139902/01/20 02/01/20 History potassium chloride 20 meq PO DAILY@139902/01/20 02/01/20 History Allergies Allergy/AdvReac Type Severity Reaction Status Date / Time Fish Containing Products Allergy Severe ANAPHYLAXIS Verified 02/01/20 15:41 peanut Allergy Severe ANAPHYLAXIS Verified 02/01/20 15:41 salmon oil Allergy Severe ANAPHYLAXIS Verified 02/01/20 15:41 shellfish derived Allergy Severe ANAPHYLAXIS Verified 02/01/20 15:41 adhesive Allergy Intermediate SKIN GETS Verified 02/01/20 15:41 RED AND PAINFUL latex Allergy Intermediate SKIN GETS Verified 02/01/20 15:41 RED AND PAINFUL mold Allergy Intermediate SNEEZING Verified 02/01/20 15:41 AND COUGHING ertapenem Allergy Unknown HIVES Unverified 02/01/20 15:41 noe Allergy Verified 02/02/20 09:11 sulfamethoxazole AdvReac Mild Gastrointestinal Verified 02/01/20 15:41 [From Bactrim] Upset trimethoprim [From Bactrim] AdvReac Mild Gastrointestinal Verified 02/01/20 15:41 Upset milk AdvReac Unknown GI SYMPTOMS Verified 02/01/20 15:41 Dust Allergy Intermediate SNEEZING Uncoded 02/01/20 15:41 AND COUGHING carmichael noe Allergy Intermediate lips and Uncoded 02/01/20 15:41 mouth swell Past Med/Surg History Medical History Lupus (Chronic) Social History Preferred Language: Hong Konger Communication Ability: Effective Contact Centre Supervisor Required: No Beliefs That Will Affect Care: None Current Living Situation: Alone Other Information That Helps Us Care for You: No Feels Safe at Home: Yes Safety Concerns: Feels Safe At This Time Smoking Status: Never smoker Hx Alcohol Use: No Hx Substance Use: No Review of Systems A total of 10 systems reviewed and were otherwise negative Physical Exam Vital Signs Vital Signs - 24 hr 02/01/20 16:00 02/01/20 18:20 02/01/20 19:18 Pulse Rate [Left Finger] 72 102 H 99 H Respiratory Rate 20 22 18 Respiratory Depth Normal Blood Pressure [Left Arm] 102/67 125/78 122/71 Blood Pressure Mean [Left Arm] 78 93 88 Pulse Oximetry 98 100 99 Oxygen Delivery Method Room Air Constitutional WD/WN, vitals as above Eyes EOM intact bilaterally ENMT external ear and nose normal, oropharynx normal Neck trachea midline Respiratory normal respiratory effort, lungs clear to auscultation Cardiovascular RRR, no murmur, no edema Gastrointestinal (Abdomen) normal bowel sounds, soft, nontender, no hepatosplenomegaly Mild right-sided CVA tenderness noted Skin no rashes, warm and dry Psychiatric Acting appropriately Course Course Patient was seen and examined Vital signs including blood pressure were reviewed medications list was verified with patient Labs were obtained, and a saline lock was established Upon reevaluation, the patient was resting comfortably. We discussed her results. She voiced understanding and was comfortable with the disposition. I spoke with the [facility]. They kindly agreed to evaluate the patient for likely inpatient management. The patient was covered with antibiotics in the emergency department. She r emained comfortable and stable. Consultations Consultation #1: [facility] Administered Medications Heparin Sodium (Porcine) (Heparin Sodium (Porcine)) 5,000 units SQ Q8 AMITA Stop: 03/03/20 05:59 Last Admin: 02/02/20 05:29 Dose: Not Given Documented by: [id number] Sodium Chloride (Nss 1000ml) 1,000 mls @ 100 mls/hr IV .Q10H AMITA Stop: 03/02/20 22:07 Last Admin: 02/02/20 08:51 Dose: 100 mls/hr Documented by: [id number] Infusion: 02/02/20 08:51 Dose: 100 mls/hr Documented by: [id number] Admin: 02/01/20 22:52 Dose: 100 mls/hr Documented by: [id number] Metoprolol Succinate (Toprol Xl) 12.5 mg PO DAILY@2230 AMITA Stop: 03/02/20 22:29 Last Admin: 02/01/20 23:51 Dose: 12.5 mg Documented by: [id number] Miscellaneous (Order Awaiting Action) 1 ea N/A QS AMITA Stop: 03/03/20 00:00 Last Admin: 02/02/20 08:51 Dose: Not Given Documented by: [id number] Admin: 02/02/20 00:26 Dose: Not Given Documented by: [id number] Discontinued Medications Sodium Chloride (Nss) 500 mls @ 999 mls/hr IV .Q31M ONE Stop: 02/01/20 14:42 Last Infusion: 02/01/20 19:19 Dose: 0 mls/hr Documented by: [id number] Admin: 02/01/20 14:47 Dose: 999 mls/hr Documented by: [id number] Ceftriaxone Sodium (Rocephin) 2,000 mg in 70 mls @ 140 mls/hr IV NOW STA Stop: 02/01/20 19:07 Last Infusion: 02/01/20 19:27 Dose: 0 mls/hr Documented by: [id number] Admin: 02/01/20 18:57 Dose: 140 mls/hr Documented by: [id number] Miscellaneous (Patient's Height And/Or Weight Needed) 1 ea N/A Q15M [facility] Stop: 02/01/20 16:16 Last Admin: 02/01/20 17:49 Dose: Not Given Documented by: [id number] Admin: 02/01/20 17:49 Dose: Not Given Documented by: [id number] Admin: 02/01/20 17:49 Dose: Not Given Documented by: [id number] Medical Decision Making Medical Records Attestation: I reviewed the patient's medical records. Home Medications Current Medication List: was personally reviewed by me Laboratory Data Attestation: I reviewed the patient's lab results. Result diagrams: 02/02/20 07:18 02/02/20 07:18 Lab Results 02/01/20 02/01/20 02/01/20 Range/Units 14:50 14:50 14:50 WBC 9.31 (4.8-10.8) K/uL RBC 4.03 L (4.2-5.4) M/uL Hgb 12.3 (12.0-16.0) g/dL Hct 36.3 L (37-47) % MCV 90.1 (80-100) fL MCH 30.5 (25-34) pg MCHC 33.9 (32-36) g/dL RDW Std Deviation 50.3 H (36.4-46.3) fL RDW Coeff of Rey 15.2 H (11.5-14.5) % Plt Count 517 H (130-400) K/uL MPV 9.8 (7.4-10.4) fL Immature Gran % (Auto) 0.6 % Neut % (Auto) 64.9 % Lymph % (Auto) 21.4 % [place] % (Auto) 10.5 % Eos % (Auto) 2.3 % Baso % (Auto) 0.3 % Neut # (Auto) 6.04 (1.4-6.5) K/uL Lymph # (Auto) 1.99 (1.2-3.4) K/uL [place] # (Auto) 0.98 H (0.11-0.59) K/uL Eos # (Auto) 0.21 (0-0.5) K/uL Baso # (Auto) 0.03 (0-0.2) K/uL Immature Gran # (Auto) 0.06 H (0.00-0.02) K/uL Sodium 137 (136-145) mmol/L Potassium (3.5-5.1) mmol/L Chloride 105 (98-107) mmol/L Carbon Dioxide 21 (21-32) mmol/L Anion Gap 10.0 (3-11) BUN 27 H (7-18) mg/dl Creatinine 1.24 H (0.6-1.2) mg/dl Est Cr Clr Drug Dosing Not Reportable Est GFR ( Amer) 65.2 Est GFR (Non-Af Amer) 56.2 BUN/Creatinine Ratio 22.1 H (10-20) Glucose 88 (70-99) mg/dl Calcium 9.3 (8.5-10.1) mg/dl Total Bilirubin 0.4 (0.2-1) mg/dl AST (15-37) U/L ALT 30 (12-78) U/L Alkaline Phosphatase 59 (45-117) U/L Total Protein 8.4 H (6.4-8.2) gm/dl Albumin 3.5 (3.4-5.0) gm/dl Globulin 4.9 H (2.5-4.0) gm/dl Albumin/Globulin Ratio 0.7 L (0.9-2) HCG, Qual Cancelled Specimen Hemolysis Urine Color Urine Appearance (Clear) Urine pH (4.5-7.5) Ur Specific [place] (1.000-1.030) Urine Protein (Negative) Urine Glucose (UA) (Negative) Urine Ketones (Negative) Urine Blood (Negative) Urine Nitrite (Negative) Urine Bilirubin (Negative) Urine Urobilinogen (Negative) Ur Leukocyte Esterase (Negative) Urine WBC (Auto) (0-5) /hpf Urine RBC (Auto) (0-4) /hpf U Hyaline Cast (Auto) (0-5) /lpf U Epithel Cells (Auto) (0-5) /lpf Urine Bacteria (Auto) (Negative) 02/01/20 02/01/20 02/01/20 Range/Units 15:05 16:12 16:12 WBC (4.8-10.8) K/uL RBC (4.2-5.4) M/uL Hgb (12.0-16.0) g/dL Hct (37-47) % MCV (80-100) fL MCH (25-34) pg MCHC (32-36) g/dL RDW Std Deviation (36.4-46.3) fL RDW Coeff of Rey (11.5-14.5) % Plt Count (130-400) K/uL MPV (7.4-10.4) fL Immature Gran % (Auto) % Neut % (Auto) % Lymph % (Auto) % [place] % (Auto) % Eos % (Auto) % Baso % (Auto) % Neut # (Auto) (1.4-6.5) K/uL Lymph # (Auto) (1.2-3.4) K/uL [place] # (Auto) (0.11-0.59) K/uL Eos # (Auto) (0-0.5) K/uL Baso # (Auto) (0-0.2) K/uL Immature Gran # (Auto) (0.00-0.02) K/uL Sodium (136-145) mmol/L Potassium 3.8 (3.5-5.1) mmol/L Chloride (98-107) mmol/L Carbon Dioxide (21-32) mmol/L Anion Gap (3-11) BUN (7-18) mg/dl Creatinine (0.6-1.2) mg/dl Est Cr Clr Drug Dosing Est GFR ( Amer) Est GFR (Non-Af Amer) BUN/Creatinine Ratio (10-20) Glucose (70-99) mg/dl Calcium (8.5-10.1) mg/dl Total Bilirubin (0.2-1) mg/dl AST 19 (15-37) U/L ALT (12-78) U/L Alkaline Phosphatase (45-117) U/L Total Protein (6.4-8.2) gm/dl Albumin (3.4-5.0) gm/dl Globulin (2.5-4.0) gm/dl Albumin/Globulin Ratio (0.9-2) HCG, Qual Negative Specimen Hemolysis Urine Color Yellow Urine Appearance Cloudy A (Clear) Urine pH 5.0 (4.5-7.5) Ur Specific [place] 1.015 (1.000-1.030) Urine Protein Negative (Negative) Urine Glucose (UA) Negative (Negative) Urine Ketones Trace H (Negative) Urine Blood Trace H (Negative) Urine Nitrite Positive A (Negative) Urine Bilirubin Negative (Negative) Urine Urobilinogen Negative (Negative) Ur Leukocyte Esterase 3+ H (Negative) Urine WBC (Auto) >30 H (0-5) /hpf Urine RBC (Auto) 0-4 (0-4) /hpf U Hyaline Cast (Auto) 1-5 (0-5) /lpf U Epithel Cells (Auto) 5-10 H (0-5) /lpf Urine Bacteria (Auto) 2+ H (Negative) Imaging Data Attestation: I personally reviewed and interpreted this imaging study as follows: Radiologist's Impression: CT abdomen pelvis with IV contrast Technically limited study secondary to motion artifact, a paucity of intra- abdominal fat, and the lack of intravenous and oral contrast. 2. 4 cm right lobe hepatic mass. A nonemergent MRI is recommended in follow-up 3. Right-sided nephrolithiasis 4. Right ureteral dilatation, but no ureteral calculi identified. There is equivocal right-sided ureterocele which may explain the right ureteral dilatation. 5. No evidence of bowel obstruction. No evidence of free air. ACT 112: Negative or not required by law. Electronically signed by: Bull Robins M.D. 02/01/2020 5:42 PM Dictated: 02/01/20 1726 Transcribed: 02/01/20 1741 [facility] Narrative Differential diagnosis: UTI, ureteral stone, infected stone, pyelonephritis, musculoskeletal pain, diverticulitis, viral GI illness, among others This patient is a 34-year-old female, history of paraplegia, that presents emergency department with fever, flank pain in the setting of a UTI. The patient has already finished a course of Macrobid as an outpatient. Unfortunately, her symptoms persisted/worsened. She was sent to the emergency department by her primary care physician for evaluation. On exam, she was tachycardic. She had mild flank pain. Labs reveal an increase in creatinine. There is no leukocytosis. Urinalysis is consistent with infection. Imaging was performed. This is consistent with right-sided hydronephrosis and possible ureterocele. Has a patient has failed aspirin therapy, I do not feel comfortable sending the patient home. She would likely be admitted for inpatient management. Impression & Plan Pyelonephritis Discharge Plan Visit Data *Final* Discharge Date/Time: 02/01/20 21:20 Chief Complaint: Urinary Symptoms Stated Complaint: DOC WORRIED ABOUT PYELONEPHRITIS ED Provider: Cipriano Humphries ED Midlevel Provider: Khalida Jimenez Discharge Problem: Pyelonephritis Patient Disposition: Admitted As Inpatient Discharge Instructions Interventions: ED Discharge Assessment Last Done: 02/01/20 21:20
[2020-02-01 15:13] LABS: Basophils # (auto) 0.03 K/uL (0-0.2); Basophils % (auto) 0.3 %; Eosinophils # (auto) 0.21 K/uL (0-0.5); Eosinophils % (auto) 2.3 %; Hematocrit (blood only) 36.3 % (37-47); Hemoglobin 12.3 g/dL (12.0-16.0); Immature Granulocytes # (auto) 0.06 K/uL (0.00-0.02); Immature Granulocytes % (auto) 0.6 %; Lymphocytes # (auto) 1.99 K/uL (1.2-3.4); Lymphocytes % (auto) 21.4 %; Mean Corpuscular Hemoglobin 30.5 pg (25-34); Mean Corpuscular Hgb Conc 33.9 g/dL (32-36); Mean Corpuscular Volume 90.1 fL (80-100); Mean Platelet Volume 9.8 fL (7.4-10.4); Monocytes # (auto) 0.98 K/uL (0.11-0.59); Monocytes % (auto) 10.5 %; Neutrophils # (auto) 6.04 K/uL (1.4-6.5); Neutrophils % (auto) 64.9 %; Platelet Count 517 K/uL (130-400); RDW Coefficient of Variation 15.2 % (11.5-14.5); RDW Standard Deviation 50.3 fL (36.4-46.3); Red Blood Count 4.03 M/uL (4.2-5.4); White Blood Count 9.31 K/uL (4.8-10.8)
[2020-02-01 15:21] LABS: Appearance Urine Cloudy (Clear); Bacteria Urine Automated 2+ (Negative); Bilirubin Urine Negative (Negative); Blood Urine Trace (Negative); Color Urine Yellow; Glucose Urine UA Negative (Negative); Ketones Urine Trace (Negative); Leukocyte Esterase Urine 3+ (Negative); Nitrite Urine Positive (Negative); Protein Urine Negative (Negative); RBC Urine Automated 0-4 /hpf (0-4); Specific Gravity Urine 1.015 (1.000-1.030); Urobilinogen Urine Negative (Negative); WBC Urine Automated >30 /hpf (0-5)
[2020-02-01 15:42] LABS: Alanine Aminotransferase 30 U/L (12-78); Albumin Globulin Ratio 0.7 (0.9-2); Albumin Level 3.5 gm/dl (3.4-5.0); Alkaline Phosphatase 59 U/L (45-117); BUN Creatinine Ratio 22.1 (10-20); Bilirubin,Total 0.4 mg/dl (0.2-1); Blood Urea Nitrogen 27 mg/dl (7-18); Calcium 9.3 mg/dl (8.5-10.1); Carbon Dioxide 21 mmol/L (21-32); Chloride 105 mmol/L (98-107); Est GFR (African American) 65.2; Est GFR (Non-African American) 56.2; Globulin 4.9 gm/dl (2.5-4.0); Glucose 88 mg/dl (70-99); Sodium 137 mmol/L (136-145); Total Protein 8.4 gm/dl (6.4-8.2)
[2020-02-01 16:34] LABS: Potassium 3.8 mmol/L (3.5-5.1)
[2020-02-01 16:43] LABS: Pregnancy Test, Serum Negative (Negative)
--- NOTE | 2020-02-01 17:43 | CT Scan Report ---
CT SCAN OF THE ABDOMEN AND PELVIS WITHOUT CONTRAST CLINICAL HISTORY: flank pain fever COMPARISON STUDY: No previous studies for comparison. TECHNIQUE: CT scan of the abdomen and pelvis was performed from the lung bases to the proximal femurs . Images are reviewed in the axial, sagittal, and coronal planes. IV contrast was not administered fo r this examination. A dose lowering technique was utilized adhering to the principles of ALARA. CT DOSE: 207.80 mGycm FINDINGS: Lower chest: The heart is normal in size and configuration, without pericardial effusion. The lung ba ses and pleural spaces are clear. Liver: There is a 4 cm right lobe hepatic mass. Further characterization is not possible on this nonc ontrast study. A nonemergent MRI of the liver is recommended. Gallbladder: Contracted Spleen: Normal in size and attenuation. Pancreas: Unremarkable. Adrenal glands: Unremarkable. Kidneys: There are punctate nonobstructing right renal calculi. No ureteral or bladder calculi are vi sualized. There is right ureteral dilatation. There is minimal fullness of both renal collecting syst ems. Bowel: Evaluation of bowel is limited given the lack of intravenous and oral contrast, and motion art ifact.. In addition the patient has a relative paucity of intra-abdominal fat. There are no transitio n zones to indicate bowel obstruction. There is no evidence of acute diverticulitis. The appendix is not visualized with certainty. Peritoneum: There is no intraperitoneal free air or abdominal ascites. Vasculature: The abdominal aorta is normal in course and caliber. Adenopathy: None. Pelvic viscera: There is an equivocal right-sided ureterocele. Skeletal structures: There is chronic left pelvic deformity. There is destruction of the left femoral head. IMPRESSION: 1. Technically limited study secondary to motion artifact, a paucity of intra-abdominal fat, and the lack of intravenous and oral contrast. 2. 4 cm right lobe hepatic mass. A nonemergent MRI is recommended in follow-up 3. Right-sided nephrolithiasis 4. Right ureteral dilatation, but no ureteral calculi identified. There is equivocal right-sided uret erocele which may explain the right ureteral dilatation. 5. No evidence of bowel obstruction. No evidence of free air. ACT 112: Negative or not required by law. Electronically signed by: Bull Robins M.D. 02/01/2020 5:42 PM
[2020-02-01] MEDS: PATIENT'S HEIGHT AND/OR WEIGHT NEEDED SCH (17:49)
[2020-02-01] MEDS ORDERED: cefTRIAXone SODIUM 2,000 MG/70 ML BAG IV STA (18:38)
--- NOTE | 2020-02-01 20:18 | History & Physical Report ---
Date of Service February 01, 2020 Assessment & Plan (1) UTI (urinary tract infection): 34-year-old female with past medical history of lupus nephritis and transverse myelitis presents with concerns of flank pain and fevers found to have concern for pyelonephritis. 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 Right ureteral dilatation, but no ureteral calculi identified. There is equivocal right-sided ureterocele which may explain the right ureteral dilatation -Cont IV Rocephin -blood/urine cx pending -NSS at 100 mls/hr -pt self caths normally. Will place kong here , monitor passage of stone -pain management with Tylenol and Morphine for severe. Well controlled at present -appreciate urology consult given patient's unique history/immunocompromised Lupus Nephritis -Patient follows with Dr. Horvath -Continue azathioprine 75 mg daily, hydroxychloroquine 200 mg daily, lisinopril 5 mg daily Hepatic Mass -4 cm right lobe hepatic mass noted on abdominal pelvic CT on admission - nonemergent MRI is recommended in follow-up, can be arranged for as an outpatient FEN/GI: NSS@100. Regular diet DVT prophylaxis: Heparin SQ Full code Dispo: MedSurg History of Present Illness Chief Complaint: urinary sxs Primary Care Provider: Alexandria Andrea 34-year-old female with past medical history of lupus nephritis and transverse myelitis presents with concerns of flank pain that has been going on for 2 days. Patient follows with Dr. Cantrell of nephrology and Dr. Horvath of rheumatology. Patient describes flank pain as throbbing and pinching, nonradiating. Right worse than left. At its worst 9 out of 10 on pain scale. 2 or 3 out of 10 at time of my evaluation. Associated fevers as high as 100.8 degrees Fahrenheit. Patient has tried oral Tylenol with minimal relief for pain and fever. Patient with last UTI on December 13, 2019. Was prescribed Macrobid for 5 days. Patient notes that since admission he has had cloudy and bad smelling urine since. Patient straight caths herself 3 times daily. Patient denies any other urinary symptoms of dysuria, hematuria. No nausea, vomiting, diarrhea, abdominal pain. Patient with no other acute concerns or complaints. Pertinent labs: Creatinine 1.24, otherwise unremarkable. UA: Positive nitrates, 3+ leukocyte esterase, greater than 30 white blood cells, 2+ bacteria Abd/Pelvis CT w/o contrast: Right-sided nephrolithiasis. Right ureteral dilatation, but no ureteral calculi identified. There is equivocal right-sided ureterocele which may explain the right ureteral dilatation. ER course: IV Rocephin, NSS 0.5 L Allergies Allergy/AdvReac Type Severity Reaction Status Date / Time apricot Allergy Severe LIPS AND Verified 02/01/20 15:41 MOUTH SWELL black pepper Allergy Severe LIPS AND Verified 02/01/20 15:41 MOUTH SWELL carrot Allergy Severe MOUTH AND Verified 02/01/20 15:41 LIPS SWELL celery Allergy Severe LIPS AND Verified 02/01/20 15:41 MOUTH SWELL enriquez Allergy Severe LIPS AND Verified 02/01/20 15:41 MOUTH SWELL Fish Containing Products Allergy Severe ANAPHYLAXIS Verified 02/01/20 15:41 lemon Allergy Severe MOUTH AND Verified 02/01/20 15:41 LIPS SWOLLEN peanut Allergy Severe ANAPHYLAXIS Verified 02/01/20 15:41 salmon oil Allergy Severe ANAPHYLAXIS Verified 02/01/20 15:41 shellfish derived Allergy Severe ANAPHYLAXIS Verified 02/01/20 15:41 adhesive Allergy Intermediate SKIN GETS Verified 02/01/20 15:41 RED AND PAINFUL blueberry Allergy Intermediate LIPS AND Verified 02/01/20 15:41 MOUTH SWELL latex Allergy Intermediate SKIN GETS Verified 02/01/20 15:41 RED AND PAINFUL mold Allergy Intermediate SNEEZING Verified 02/01/20 15:41 AND COUGHING ertapenem Allergy Unknown HIVES Unverified 02/01/20 15:41 sulfamethoxazole AdvReac Mild Gastrointestinal Verified 02/01/20 15:41 [From Bactrim] Upset trimethoprim [From Bactrim] AdvReac Mild Gastrointestinal Verified 02/01/20 15:41 Upset milk AdvReac Unknown GI SYMPTOMS Verified 02/01/20 15:41 Pea Allergy Severe LIPS AND Uncoded 02/01/20 15:41 MOUTH SWELL Dust Allergy Intermediate SNEEZING Uncoded 02/01/20 15:41 AND COUGHING carmichael noe Allergy Intermediate lips and Uncoded 02/01/20 15:41 mouth swell Home Medications Home Medications Medication Instructions Recorded Confirmed Type aspirin 81 mg PO DAILY PRN 02/01/20 02/01/20 History azathioprine 75 mg PO DAILY@139902/01/20 02/01/20 History calcium carbonate-vitamin D3 1 tab PO DAILY@139902/01/20 02/01/20 History [Oysco 500/D] cholecalciferol (vitamin D3) 25 mcg PO DAILY@139902/01/20 02/01/20 History [Vitamin D3] fenofibrate micronized 200 mg PO DAILY@139902/01/20 02/01/20 History hydroxychloroquine 200 mg PO DAILY@139902/01/20 02/01/20 History lisinopril 5 mg PO DAILY@139902/01/20 02/01/20 History metoprolol succinate 12.5 mg PO DAILY@222902/01/20 02/01/20 History multivitamin 1 tab PO DAILY@139902/01/20 02/01/20 History potassium chloride 20 meq PO DAILY@139902/01/20 02/01/20 History Past Med/Surg History Medical History Lupus (Chronic) Social History Preferred Language: Kiswahili Communication Ability: 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 Beliefs That Will Affect Care: None Current Living Situation: Alone Other Information That Helps Us Care for You: No Feels Safe at Home: Yes Safety Concerns: Feels Safe At This Time Smoking Status: Never smoker Hx Alcohol Use: No Hx Substance Use: No Review of Systems Review of Systems: All systems reviewed & are unremarkable except as noted in HPI & below Physical Exam Constitutional: WD/WN, vitals as above Eyes: PERRL, conjunctivae normal, anicteric sclerae ENMT: external ear and nose normal, oropharynx normal Respiratory: normal respiratory effort, lungs clear to auscultation Cardiovascular: RRR, no murmur, no edema Gastrointestinal (Abdomen): normal bowel sounds, soft, nontender, no hepatosplenomegaly Musculoskeletal: flank pain R>L Skin: no rashes, warm and dry Neurologic: paraplegic Psychiatric: A+Ox3, euthymic affect Results & Data Results & Data ([facility]) Vital Signs (Past 12 Hours) Vital Signs Temp Pulse Pulse Resp BP BP Pulse Ox 02/01/20 19:18 99 H 18 122/71 99 02/01/20 18:20 102 H 22 125/78 100 02/01/20 16:00 72 20 102/67 98 02/01/20 12:42 37.0 C 120 H 22 116/65 99 Laboratory Results Laboratory Results - last 24 hr 02/01/20 02/01/20 02/01/20 14:50 14:50 14:50 WBC 9.31 RBC 4.03 L Hgb 12.3 Hct 36.3 L MCV 90.1 MCH 30.5 MCHC 33.9 RDW Std Deviation 50.3 H RDW Coeff of Rey 15.2 H Plt Count 517 H MPV 9.8 Immature Gran % (Auto) 0.6 Neut % (Auto) 64.9 Lymph % (Auto) 21.4 [place] % (Auto) 10.5 Eos % (Auto) 2.3 Baso % (Auto) 0.3 Neut # (Auto) 6.04 Lymph # (Auto) 1.99 [place] # (Auto) 0.98 H Eos # (Auto) 0.21 Baso # (Auto) 0.03 Immature Gran # (Auto) 0.06 H Sodium 137 Potassium Chloride 105 Carbon Dioxide 21 Anion Gap 10.0 BUN 27 H Creatinine 1.24 H Est Cr Clr Drug Dosing Not Reportable Est GFR ( Amer) 65.2 Est GFR (Non-Af Amer) 56.2 BUN/Creatinine Ratio 22.1 H Glucose 88 Calcium 9.3 Total Bilirubin 0.4 AST ALT 30 Alkaline Phosphatase 59 Total Protein 8.4 H Albumin 3.5 Globulin 4.9 H Albumin/Globulin Ratio 0.7 L HCG, Qual Cancelled Specimen Hemolysis Urine Color Urine Appearance Urine pH Ur Specific [place] Urine Protein Urine Glucose (UA) Urine Ketones Urine Blood Urine Nitrite Urine Bilirubin Urine Urobilinogen Ur Leukocyte Esterase Urine WBC (Auto) Urine RBC (Auto) U Hyaline Cast (Auto) U Epithel Cells (Auto) Urine Bacteria (Auto) 02/01/20 02/01/20 02/01/20 15:05 16:12 16:12 WBC RBC Hgb Hct MCV MCH MCHC RDW Std Deviation RDW Coeff of [place] Plt Count MPV Immature Gran % (Auto) Neut % (Auto) Lymph % (Auto) [place] % (Auto) Eos % (Auto) Baso % (Auto) Neut # (Auto) Lymph # (Auto) [place] # (Auto) Eos # (Auto) Baso # (Auto) Immature Gran # (Auto) Sodium Potassium 3.8 Chloride Carbon Dioxide Anion Gap BUN Creatinine Est Cr Clr Drug Dosing Est GFR ( Amer) Est GFR (Non-Af Amer) BUN/Creatinine Ratio Glucose Calcium Total Bilirubin AST 19 ALT Alkaline Phosphatase Total Protein Albumin Globulin Albumin/Globulin Ratio HCG, Qual Negative Specimen Hemolysis Urine Color Yellow Urine Appearance Cloudy A Urine pH 5.0 Ur Specific [place] 1.015 Urine Protein Negative Urine Glucose (UA) Negative Urine Ketones Trace H Urine Blood Trace H Urine Nitrite Positive A Urine Bilirubin Negative Urine Urobilinogen Negative Ur Leukocyte Esterase 3+ H Urine WBC (Auto) >30 H Urine RBC (Auto) 0-4 U Hyaline Cast (Auto) 1-5 U Epithel Cells (Auto) 5-10 H Urine Bacteria (Auto) 2+ H Code Status & VTE Plan Code Status FULL Supervising Physician Co-Signing Physician Notes Patient seen and examined, chart reviewed, case discussed with Dr. Gibson and I agree with his assessment and plan as documented above. Briefly, patient is a 34yo female with history of biopsy proven lupus nephritis, transverse myelitis resulting in paraplegia. Patient self-catheterizes q 6 hours at home. She is currently on Azathioprine and Hydroxychloroquine. She follows with Dr. Horvath from Rheumatology, Dr. Puentes of Nephrology and was previously seeing Dr. Scott from Urology to assist with catheterization and supplies. Patient with recent UTI being treated with Macrobid. She presents with flank pain, fevers, +UA. CT with right sided nephrolithiasis and ureteral dilatation but no ureteral calculi identified. Concern for pyelonephritis in immunocompromised patient. On exam she is afebrile, hemodynamically stable, NAD Skin - warm, dry, intact, no rashes/lesions HEENT - NC/AT, PERRL, EOMI, MMM, dentition intact, no OP lesions Heart - +S1/S2, regular, no m/r/g Lungs - CTA, no rales/rhonchi/wheezes Abd - +BS, soft, NT/ND, right CVA tenderness present Ext - No edema Neuro - AA&O x 4, paraplegia Labs and images reviewed Assessment/Plan - 34yo female with lupus nephritis on Azathioprine/Hydroxychloroquine, remote history of myelitis resulting in paraplegia, recent UTI treated with Macrobid presenting with fever, flank pain, CVA tenderness -Observation to medical floor -Place Kong catheter - monitor for stone passage -Follow urine cultures -Ceftriaxone -IVF -Urology consultation appreciated - no obstructing stone appreciated, however, concern for presence of stones with dilated ureter, flank pain and fever in immunocompromised host -Remainder of plan as above Resident Activity Tracking Resident Involvement: Resident Care Provided Care Provided: Adult Hospital Medicine
[2020-02-01] MEDS ORDERED: MoRPHine SULFATE 2 MG/ML CARP IV PRN (22:08)
[2020-02-01] MEDS ORDERED: ALUMINUM/MAGNESIUM SUSP 30 ML UDC PO PRN (22:08)
[2020-02-01] MEDS ORDERED: ACETAMINOPHEN 325 MG TAB PO PRN (22:08)
--- NOTE | 2020-02-01 22:48 | Billing Data ---
Date of Service February 01, 2020 Coding Level of Care Code 54351 OBS Care - Level 3
[2020-02-01] MEDS: SODIUM CHLORIDE 0.9% 1000ML 1,000 ML IV SCH (22:52)
[2020-02-01] MEDS: METOPROLOL SUCC 25MG EXT REL TAB PO SCH (23:51)
[2020-02-02] MEDS: HEPARIN SOD 5,000 UNIT/0.5 ML VIAL SQ SCH ×3 (05:29→21:49)
[2020-02-02 07:47] LABS: Basophils # (auto) 0.04 K/uL (0-0.2); Basophils % (auto) 0.6 %; Eosinophils # (auto) 0.26 K/uL (0-0.5); Eosinophils % (auto) 3.8 %; Hematocrit (blood only) 32.1 % (37-47); Hemoglobin 10.9 g/dL (12.0-16.0); Immature Granulocytes # (auto) 0.03 K/uL (0.00-0.02); Immature Granulocytes % (auto) 0.4 %; Lymphocytes # (auto) 2.18 K/uL (1.2-3.4); Lymphocytes % (auto) 32.1 %; Mean Corpuscular Hemoglobin 30.2 pg (25-34); Mean Corpuscular Volume 88.9 fL (80-100); Mean Platelet Volume 9.5 fL (7.4-10.4); Monocytes % (auto) 10.3 %; Neutrophils # (auto) 3.58 K/uL (1.4-6.5); Neutrophils % (auto) 52.8 %; Platelet Count 430 K/uL (130-400); RDW Standard Deviation 48.8 fL (36.4-46.3); Red Blood Count 3.61 M/uL (4.2-5.4); White Blood Count 6.79 K/uL (4.8-10.8)
--- NOTE | 2020-02-02 08:18 | Hospitalist Progress Note ---
Date of Service February 02, 2020 Assessment & Plan (1) Pyelonephritis: 34-year-old female with past medical history of lupus nephritis and transverse myelitis presents with concerns of flank pain and fevers found to have concern for pyelonephritis. 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 Right ureteral dilatation, but no ureteral calculi identified. There is equivocal right-sided ureterocele which may explain the right ureteral dilatation -Cont IV Rocephin, plan to convert to oral pending sensitivities. -Urine culture positive for E. Coli, awaiting sensitivities. -NSS at 100 mls/hr -pt self caths normally. Will place kong here , monitor for passage of stone -pain management with Tylenol and Morphine for severe. Well controlled at present -appreciate urology consult given patient's unique history/immunocompromised Lupus Nephritis -Patient follows with Dr. Horvath -Continue azathioprine 75 mg daily, hydroxychloroquine 200 mg daily, lisinopril 5 mg daily Hepatic Mass -4 cm right lobe hepatic mass noted on abdominal pelvic CT on admission -nonemergent MRI is recommended in follow-up, can be arranged for as an outpatient Dizziness -?Periods of hypotension due to medication. -Suspect patient has had worsening dehydration with current illness. -Will continue treatment of current infection, recommend that patient have follow up with Cardiology and Nephrology outpatient for further discussion of Metoprolol and Lisinopril. FEN/GI: NSS@100. Regular diet DVT prophylaxis: Heparin SQ Full code Dispo: MedSurg (2) UTI (urinary tract infection): Admission and Anticipated Discharge Date Admission Date: February 01, 2020 Supervising Physician Co-Signing Physician Notes I personally examined the patient and verified all chowdary points of history and exam, discussed case, and agree with decision making with Dr Larios. feeling much better. hopeful to go home. vitals noted nad heent nc at mmm breathing unlabored no accessory muscles good effort skin no rashes no pallor or icterus pyelonephritis in the setting of lupus/lupus nephritis and chronic im munosuppressive use - improved dramatically. await final ID&S on culture then hopefully home tomorrow Subjective Patient is a very pleasant 34 year old female seen at the bedside this AM. Patient states that since admission she has felt much better and notes that she has no R flank pain whenever laying down or resting, but that she notices it at a 5/10 when moving around. Patient notes a fairly significant medical history of Lupus Nephritis since 2008, and Transverse Myelitis affecting T10 downwards since 07/28/2010. Notes that she typically self catheterizes herself 3x/day and that the past 2 days has noticed cloudiness and worsening smell of her urine, especially towards the end of the catheterization. States she had a bladder infection back in 12/13/19 which was treated with Macrobid. Currently patients only concern is that she does get some lightheadedness when moving around which she attributes to her blood pressure medications metoprolol and lisinopril. She otherwise denies any fever, chills, abdominal pain, sob, chest pain, urinary symptoms (she has minimal feeling below the level of T10 other than paresthesias in her legs). Review of Systems Review of Systems: All systems reviewed & are unremarkable except as noted in Subjective Physical Exam Constitutional: well developed, well nourished, + thin and + physical limitations (paraplegic since 07/28/2010 ); no acute distress and not ill appearing Eyes: PERRL, conjunctivae normal, anicteric sclerae ENMT: external ear and nose normal, oropharynx normal Respiratory: normal respiratory effort, lungs clear to auscultation Cardiovascular: RRR, no murmur, no edema Gastrointestinal (Abdomen): normal bowel sounds, soft, nontender, no hepatosplenomegaly Percussion/Palpation: abdomen soft; abdomen nontender and no guarding Musculoskeletal: Paraplegic Genitourinary: + CVA tenderness Results & Data Results & Data ([facility]) Vital Signs (Past 12 Hours) Vital Signs Temp Pulse Pulse Resp BP BP BP 02/02/20 07:59 36.7 C 103 H 16 117/79 02/01/20 23:13 37.2 C 91 H 16 130/89 02/01/20 22:09 37.4 C 100 H 16 114/74 02/01/20 21:20 102 H 18 125/73 02/01/20 20:46 102 H 16 125/71 Pulse Ox 02/02/20 07:59 97 02/01/20 23:13 100 07/10/20 22:09 100 02/01/20 21:20 100 02/01/20 20:46 100 Resident Activity Tracking Resident Involvement: Resident Care Provided Care Provided: Adult Hospital Medicine
[2020-02-02 08:21] LABS: BUN Creatinine Ratio 22.4 (10-20); Calcium 8.2 mg/dl (8.5-10.1); Est GFR (African American) 109.1; Est GFR (Non-African American) 94.1; Potassium 3.6 mmol/L (3.5-5.1)
[2020-02-02] MEDS: SODIUM CHLORIDE 0.9% 1000ML 1,000 ML IV SCH ×2 (08:51→18:40)
[2020-02-02] MEDS: CALCIUM 600MG + VIT D 400 IU TAB PO SCH (14:24)
[2020-02-02] MEDS: azaTHIOprine 25 MG TAB PO SCH (14:24)
[2020-02-02] MEDS: CHOLECALCIFEROL 1,000 UNITS 25 MCG TAB PO SCH (14:25)
[2020-02-02] MEDS: MULTIVITAMIN TAB PO SCH (14:25)
[2020-02-02] MEDS: POTASSIUM CHLORIDE 20 MEQ TABCR PO SCH (14:25)
[2020-02-02] MEDS: HYDROXYCHLOROQUINE SULFATE 200 MG TAB PO SCH (14:25)
[2020-02-02] MEDS: lisinopriL 5 MG TAB PO SCH (14:26)
--- NOTE | 2020-02-02 14:46 | Urology Consultation ---
Date of Consultation February 02, 2020 Assessment & Plan (1) Pyelonephritis: Patient previously of Dr. Scott. Is on a [facility]IC schedule for management of neurogenic bladder. Patient has not had a considerable major episode of UTI- like symptoms or other major problems in a number years. Has no major history of problems prior to this. Does have a considerable chronic medical history with significant lupus/autoimmune disorder and immunosuppression. Patient developed paraplegia after myelitis. Is very active otherwise with overall great control and management of her activities of daily living. Tolerating catheter. Patient has drastically improved after initiation of IV antibiotics. Is being given supportive care with IV hydration. Awaiting full culture report. Did discuss at length different options for management. Discussed possible obstruction especially related to ureterocele. Discussed possible causes and issues. Discussed possible congenital anomaly. Discussed other concerns and issues. Discussed possible options for fixing. Discussed need to monitor with imaging. Discussed possibility of stagnation of urine leading to pyelonephritis in the obstructed kidney. Patient has drastically improved and at this point I do not feel a urgent or emergent stent placement would benefit however do agree with plans for decompression with Millan catheter. Patient will likely need a cystoscopy we can try to arrange this in the coming weeks in our office. At that time we can discuss further the options for the ureterocele with possible dilation or resection depending on the severity. Patient will likely need 7 to 10 days of appropriate antibiotics depending on cultures and sensitivities. Patient's complicated medical and surgical history was reviewed and summarized above. Family history is reviewed and mentioned as above. Patient's imaging was reviewed interpreted by myself. We will plan to monitor with plans for outpatient follow-up after hospitalization. For cystoscopy. (2) Ureterocele: (3) Neurogenic bladder: History of Present Illness Attending Physician: Cipriano Blevins DO History of Present Illness New consultation for patient with UTI/Pyelo, discomfort, and ill feelings. Patient is a longtime patient of Dr. Scott with neurogenic bladder, paraplegia, lupus, autoimmune, and immunosuppression. Patient self caths without major issue. Does not remember the last time she has had a scope. Has had some issues with chronic colonization versus UTIs. Has not recently had a significant UTI or kidney infection. Patient developed sudden onset of pain into flank going down and radiating into groin and back in waves comes and goes. Can be severe at times. Became acutely ill. After initiation of IV antibiotics over a day or 2 has improved drastically. Discussed and reviewed patient's family history for any history of issues, infections, and disease. No known history of family anomalies. Also, discu ssed patient's medical/surgery history especially related to any history of urinary issues or stone disease. Patient was admitted and is undergoing observation with broad spectrum IV antibiotics. A catheter was placed for drainage during the acute illness. Allergies Allergy/AdvReac Type Severity Reaction Status Date / Time Fish Containing Products Allergy Severe ANAPHYLAXIS Verified 02/01/20 15:41 peanut Allergy Severe ANAPHYLAXIS Verified 02/01/20 15:41 salmon oil Allergy Severe ANAPHYLAXIS Verified 02/01/20 15:41 shellfish derived Allergy Severe ANAPHYLAXIS Verified 02/01/20 15:41 adhesive Allergy Intermediate SKIN GETS Verified 02/01/20 15:41 RED AND PAINFUL latex Allergy Intermediate SKIN GETS Verified 02/01/20 15:41 RED AND PAINFUL mold Allergy Intermediate SNEEZING Verified 02/01/20 15:41 AND COUGHING ertapenem Allergy Unknown HIVES Unverified 02/01/20 15:41 noe Allergy Verified 02/02/20 09:11 sulfamethoxazole AdvReac Mild Gastrointestinal Verified 02/01/20 15:41 [From Bactrim] Upset trimethoprim [From Bactrim] AdvReac Mild Gastrointestinal Verified 02/01/20 15:41 Upset milk AdvReac Unknown GI SYMPTOMS Verified 02/01/20 15:41 Dust Allergy Intermediate SNEEZING Uncoded 02/01/20 15:41 AND COUGHING carmichael noe Allergy Intermediate lips and Uncoded 02/01/20 15:41 mouth swell Home Medications Home Medications Medication Instructions Recorded Confirmed Type aspirin 81 mg PO DAILY PRN 02/01/20 02/01/20 History azathioprine 75 mg PO DAILY@139902/01/20 02/01/20 History calcium carbonate-vitamin D3 1 tab PO DAILY@139902/01/20 02/01/20 History [Oysco 500/D] cholecalciferol (vitamin D3) 25 mcg PO DAILY@139902/01/20 02/01/20 History [Vitamin D3] fenofibrate micronized 200 mg PO DAILY@139902/01/20 02/01/20 History hydroxychloroquine 200 mg PO DAILY@139902/01/20 02/01/20 History lisinopril 5 mg PO DAILY@139902/01/20 02/01/20 History metoprolol succinate 12.5 mg PO DAILY@2230 02/01/20 02/01/20 History multivitamin 1 tab PO DAILY@139902/01/20 02/01/20 History potassium chloride 20 meq PO DAILY@139902/01/20 02/01/20 History Patient History Medical History Lupus (Chronic) Social History Preferred Language: Palauan Communication Ability: Effective Taker Off Required: No Beliefs That Will Affect Care: None Current Living Situation: Alone Other Information That Helps Us Care for You: No Feels Safe at Home: Yes Safety Concerns: Feels Safe At This Time Smoking Status: Never smoker Hx Alcohol Use: No Hx Substance Use: No Review of Systems Review of Systems: All systems reviewed & are unremarkable except as noted in HPI & below Physical Exam Physical Exam: General: Alert in no acute distress. Paraplegia with atrophy of lower extremities. Small stature. Thin. HEENT: Normocephalic. Inspection normal. Cranial Nerves 2-12 Grossly intact w ith some hearing issues. Normal inspection of face. Normal inspection of neck. Psychologic: Normal affect. Baseline issues with memory. Respiratory: Nonlabored. No use of accessory muscles. No tachypnea or dyspnea. Cardiovascular: No tachycardia Skin: [place] and Dry. No rashes or visible lesions. Extremities/Lymphatics: Atrophic lower extremities with paraplegia. Baseline for issues. Abdomen: Moderately distended. No rebound or guarding. : Millan in place draining clear yellow urine. Results & Data Vital Signs (Past 12 Hours) Vital Signs Temp Pulse Resp BP Pulse Ox 02/02/20 13:15 37.2 C 104 H 16 132/85 99 02/02/20 07:59 36.7 C 103 H 16 117/79 97 PG Care Time/CCT Total # of Minutes Spent Total Time Spent with Patient: Total time spent is greater than 50% in coordin ation of care (as documented) at patient's floor/unit and/or counseling patient: Coding Level of Care Code 11402 Inpt Consult Level 5 Diagnoses Pyelonephritis N12 Ureterocele N28.89 Neurogenic bladder N31.9
[2020-02-02] MEDS ORDERED: cefTRIAXone SODIUM 1,000 MG in DEXTROSE 5% 50 ML IV SCH (18:00)
--- NOTE | 2020-02-02 19:32 | Billing Data ---
Date of Service February 02, 2020 Coding Level of Care Code 30514 Subseq Hosp Care Lvl 3
[2020-02-02] MEDS: METOPROLOL SUCC 25MG EXT REL TAB PO SCH (22:05)
[2020-02-03] MEDS: SODIUM CHLORIDE 0.9% 1000ML 1,000 ML IV SCH (03:37)
[2020-02-03] MEDS: HEPARIN SOD 5,000 UNIT/0.5 ML VIAL SQ SCH ×2 (03:38→13:44)
[2020-02-03 05:38] LABS: Basophils # (auto) 0.05 K/uL (0-0.2); Basophils % (auto) 0.8 %; Eosinophils # (auto) 0.38 K/uL (0-0.5); Eosinophils % (auto) 5.8 %; Hematocrit (blood only) 28.4 % (37-47); Hemoglobin 9.6 g/dL (12.0-16.0); Immature Granulocytes # (auto) 0.03 K/uL (0.00-0.02); Immature Granulocytes % (auto) 0.5 %; Lymphocytes # (auto) 2.31 K/uL (1.2-3.4); Mean Corpuscular Hemoglobin 30.5 pg (25-34); Mean Corpuscular Hgb Conc 33.8 g/dL (32-36); Mean Corpuscular Volume 90.2 fL (80-100); Mean Platelet Volume 10.2 fL (7.4-10.4); Monocytes # (auto) 0.69 K/uL (0.11-0.59); Monocytes % (auto) 10.5 %; Neutrophils # (auto) 3.14 K/uL (1.4-6.5); Neutrophils % (auto) 47.4 %; Platelet Count 380 K/uL (130-400); RDW Coefficient of Variation 14.8 % (11.5-14.5); RDW Standard Deviation 48.9 fL (36.4-46.3); Red Blood Count 3.15 M/uL (4.2-5.4)
[2020-02-03 06:07] LABS: BUN Creatinine Ratio 26.3 (10-20); Calcium 7.3 mg/dl (8.5-10.1); Creatinine Clr Calc Pharmacy 96.4 ml/min; Est GFR (African American) 134.7; Est GFR (Non-African American) 116.2; Potassium 3.8 mmol/L (3.5-5.1)
[2020-02-03] MEDS ORDERED: CEFDINIR 300 MG CAP PO SCH (09:00)
--- NOTE | 2020-02-03 11:12 | Discharge Summary ---
Date of Service February 03, 2020 Admission HPI Per Admitting Provider 34-year-old female with past medical history of lupus nephritis and transverse myelitis presents with concerns of flank pain that has been going on for 2 days. Patient follows with Dr. Cantrell of nephrology and Dr. Horvath of rheumatology. Patient describes flank pain as throbbing and pinching, nonradiating. Right worse than left. At its worst 9 out of 10 on pain scale. 2 or 3 out of 10 at time of my evaluation. Associated fevers as high as 100.8 degrees Fahrenheit. Patient has tried oral Tylenol with minimal relief for pain and fever. Patient with last UTI on December 13, 2019. Was prescribed Macrobid for 5 days. Patient notes that since admission he has had cloudy and bad smelling urine since. Patient straight caths herself 3 times daily. Patient denies any other urinary symptoms of dysuria, hematuria. No nausea, vomiting, diarrhea, abdominal pain. Patient with no other acute concerns or complaints. Pertinent labs: Creatinine 1.24, otherwise unremarkable. UA: Positive nitrates, 3+ leukocyte esterase, greater than 30 white blood cells, 2+ bacteria Abd/Pelvis CT w/o contrast: Right-sided nephrolithiasis. Right ureteral dilatation, but no ureteral calculi identified. There is equivocal right-sided ureterocele which may explain the right ureteral dilatation. ER course: IV Rocephin, NSS 0.5 L Admission Exam Per Admitting Provider Constitutional: WD/WN, vitals as above Eyes: PERRL, conjunctivae normal, anicteric sclerae ENMT: external ear and nose normal, oropharynx normal Respiratory: normal respiratory effort, lungs clear to auscultation Cardiovascular: RRR, no murmur, no edema Gastrointestinal (Abdomen): normal bowel sounds, soft, nontender, no hepatosplenomegaly Musculoskeletal: flank pain R>L Skin: no rashes, warm and dry Neurologic: paraplegic Psychiatric: A+Ox3, euthymic affect Principal Diagnosis Pyelonephritis Discharge Exam Constitutional well developed, well nourished, + thin and + physical limitations (paraplegic since 07/28/2010 ); no acute distress and not ill appearing Eyes PERRL, conjunctivae normal, anicteric sclerae ENMT external ear and nose normal, oropharynx normal Respiratory normal respiratory effort, lungs clear to auscultation Cardiovascular RRR, no murmur, no edema Gastrointestinal (Abdomen) normal bowel sounds, soft, nontender, no hepatosplenomegaly Percussion/Palpation: abdomen soft; abdomen nontender and no guarding Musculoskeletal ?Muscle spasm/tender point slight cephalad of rib angle rib 9 on the R. Psychiatric A+Ox3, euthymic affect Genitourinary + CVA tenderness (on R) Discharge Data Allergies Allergy/AdvReac Type Severity Reaction Status Date / Time Fish Containing Products Allergy Severe ANAPHYLAXIS Verified 02/01/20 15:41 peanut Allergy Severe ANAPHYLAXIS Verified 02/01/20 15:41 salmon oil Allergy Severe ANAPHYLAXIS Verified 02/01/20 15:41 shellfish derived Allergy Severe ANAPHYLAXIS Verified 02/01/20 15:41 adhesive Allergy Intermediate SKIN GETS Verified 02/01/20 15:41 RED AND PAINFUL latex Allergy Intermediate SKIN GETS Verified 02/01/20 15:41 RED AND PAINFUL mold Allergy Intermediate SNEEZING Verified 02/01/20 15:41 AND COUGHING ertapenem Allergy Unknown HIVES Unverified 02/01/20 15:41 noe Allergy Verified 02/02/20 09:11 sulfamethoxazole AdvReac Mild Gastrointestinal Verified 02/01/20 15:41 [From Bactrim] Upset trimethoprim [From Bactrim] AdvReac Mild Gastrointestinal Verified 02/01/20 15:41 Upset milk AdvReac Unknown GI SYMPTOMS Verified 02/01/20 15:41 Dust Allergy Intermediate SNEEZING Uncoded 02/01/20 15:41 AND COUGHING carmichael noe Allergy Intermediate lips and Uncoded 02/01/20 15:41 mouth swell Consultations 02/01/20 19:02 ED Decision to Admit Stat 02/01/20 22:08 Consult Urology Routine Ordered Studies 02/01/20 14:12 CT abd pelvis wo con Stat Hospital Course (1) Pyelonephritis: 34-year-old female with past medical history of lupus nephritis and transverse myelitis presents with concerns of flank pain and fevers found to have concern for pyelonephritis. Pyelonephritis -pt with complaints of flank pain and fevers GUIDEMAN -UA: Positive nitrates, 3+ leukocyte esterase, greater than 30 white blood cells, 2+ bacteria -Abd/Pelvis CT w/o contrast: Right-sided nephrolithiasis. Right ureteral dilatation, but no ureteral calculi identified. There is equivocal right-sided ureterocele which may explain the right ureteral dilatation -IV Rocephin was converted to PO Cefdinir x13 additional days for a total of 2 weeks antibiotic treatment. -Urine culture positive for E. Coli, palomares sensitive. -pt self caths normally. Will place kong here , monitor for passage of stone. Kong DC'd at discharge. -pain management with Tylenol and Morphine for severe. -appreciate urology consult given patient's unique history/immunocompromised -Will follow with Urology outpatient for Cystoscopy regarding R sided ureterocele. Lupus Nephritis -Patient follows with Dr. Horvath -Continued azathioprine 75 mg daily, hydroxychloroquine 200 mg daily, lisinopril 5 mg daily Hepatic Mass -4 cm right lobe hepatic mass noted on abdominal pelvic CT on admission -nonemergent MRI is recommended in follow-up, can be arranged for as an outpatient -Patient to discuss with PCP upon discharge. Dizziness -?Periods of hypotension due to medication. -Suspect patient has had worsening dehydration with current illness. -Will continue treatment of current infection, recommend that patient have follow up with Cardiology and Nephrology outpatient for further discussion of Metoprolol and Lisinopril. (2) UTI (urinary tract infection): 34-year-old female with past medical history of lupus nephritis and transverse myelitis presents with concerns of flank pain and fevers found to have concern for pyelonephritis. Pyelonephritis -pt with complaints of flank pain and fevers GUIDEMAN -UA: Positive nitrates, 3+ leukocyte esterase, greater than 30 white blood cells, 2+ bacteria -Abd/Pelvis CT w/o contrast: Right-sided nephrolithiasis. Right ureteral dilatation, but no ureteral calculi identified. There is equivocal right-sided ureterocele which may explain the right ureteral dilatation -Cont IV Rocephin -blood/urine cx pending -NSS at 100 mls/hr -pt self caths normally. Will place kong here , monitor passage of stone -pain management with Tylenol and Morphine for severe. Well controlled at present -appreciate urology consult given patient's unique history/immunocompromised Lupus Nephritis -Patient follows with Dr. Horvath -Continue azathioprine 75 mg daily, hydroxychloroquine 200 mg daily, lisinopril 5 mg daily Hepatic Mass -4 cm right lobe hepatic mass noted on abdominal pelvic CT on admission - nonemergent MRI is recommended in follow-up, can be arranged for as an outpatient FEN/GI: NSS@100. Regular diet DVT prophylaxis: Heparin SQ Full code Dispo: MedSurg Total Time Total Time Spent Total Time Spent (In Minutes): <30 Discharge Plan Discharge Items Patient Disposition: Home - Self-Care Reason For Visit: PYELO Discharge Diagnosis: Pyelonephritis Condition on Discharge: Good Activity: Resume your previous activity Non-emergency contact: Primary Care Provider and Urologist Call non-emergency contact if: you have any medication questions, your symptoms worsen and your temperature is above 101 Follow-up/Referrals: Alexandria Andrea PA-C [Primary Care Provider] - Diet: Regular Addtl Attending Provider Instructions: Ms. Quezada, It was our pleasure to care for your at [facility] from - 02/03/20 in regards to your Pyelonephritis. Pyelonephritis -Your urinalysis was positive for Nitrates, Bacteria, and Leukocyte esterase, indicative for an infection -With right sided flank pain and the extent of your symptoms, we believe that the infection affected both your bladder and kidney. -You responded remarkably well while on antibiotics, you have since been transitioned to oral antibiotics. -As discussed, you will need to continue taking this antibiotic, Cefdinir, for the next 13 days for a total of 14 days of treatment -You are being prescribed Cefdinir 300mg by mouth twice a day for 13 total days. Your first dose will be tonight. -Please last picker this medication at the pharmacy you provided on admission. -Urology will call you to schedule for follow up for a future cystoscopy as well for a right-sided ureterocele noted on your CAT scan of your abdomen/pelvis. Hepatic Mass -Also noted on your CAT scan was a 4cm right lobe hepatic mass -This was considered non-emergent and a future MRI is recommended for follow up. -Please discuss this with your Primary Care Physician upon discharge. Dizziness -Please discuss with your Test Administrator and Choirmaster about your blood pressure medications -These may be contributing to your occasional dizziness. -Please continue all of your other home medications as prescribed. -Please follow up with your Primary Care Physician within the next 1 week. Pending Studies at Discharge: No Studies:: CT SCAN OF THE ABDOMEN AND PELVIS WITHOUT CONTRAST CLINICAL HISTORY: flank pain fever COMPARISON STUDY: No previous studies for comparison. TECHNIQUE: CT scan of the abdomen and pelvis was performed from the lung bases to the proximal femurs. Images are reviewed in the axial, sagittal, and coronal planes. IV contrast was not administered for this examination. A dose lowering technique was utilized adhering to the principles of ALARA. CT DOSE: 207.80 mGycm FINDINGS: Lower chest: The heart is normal in size and configuration, without pericardial effusion. The lung bases and pleural spaces are clear. Liver: There is a 4 cm right lobe hepatic mass. Further characterization is not possible on this noncontrast study. A nonemergent MRI of the liver is recommended. Gallbladder: Contracted Spleen: Normal in size and attenuation. Pancreas: Unremarkable. Adrenal glands: Unremarkable. Kidneys: There are punctate nonobstructing right renal calculi. No ureteral or bladder calculi are visualized. There is right ureteral dilatation. There is minimal fullness of both renal collecting systems. Bowel: Evaluation of bowel is limited given the lack of intravenous and oral contrast, and motion artifact.. In addition the patient has a relative paucity of intra-abdominal fat. There are no transition zones to indicate bowel obstruc tion. There is no evidence of acute diverticulitis. The appendix is not visualized with certainty. Peritoneum: There is no intraperitoneal free air or abdominal ascites. Vasculature: The abdominal aorta is normal in course and caliber. Adenopathy: None. Pelvic viscera: There is an equivocal right-sided ureterocele. Skeletal structures: There is chronic left pelvic deformity. There is destruction of the left femoral head. IMPRESSION: 1. Technically limited study secondary to motion artifact, a paucity of intra- abdominal fat, and the lack of intravenous and oral contrast. 2. 4 cm right lobe hepatic mass. A nonemergent MRI is recommended in follow-up 3. Right-sided nephrolithiasis 4. Right ureteral dilatation, but no ureteral calculi identified. There is equivocal right-sided ureterocele which may explain the right ureteral dilatation. 5. No evidence of bowel obstruction. No evidence of free air. ACT 112: Negative or not required by law. Electronically signed by: Bull Robins M.D. 02/01/2020 5:42 PM Dictated: 02/01/20 1726 Transcribed: 02/01/20 1746 Stand-Alone Forms: My [employer], Smoking Cessation Medications and DC Order Prescriptions: New cefdinir 300 mg Capsule 300 mg PO BID 13 Days Qty: 25 RF: 0 Continued multivitamin Tablet 1 tab PO DAILY@1400 RF: 0 azathioprine 50 mg tablet 75 mg PO DAILY@1400 RF: 0 fenofibrate micronized 200 mg capsule 200 mg PO DAILY@1400 RF: 0 aspirin 81 mg Tablet,Delayed Release (Dr/Ec) 81 mg PO DAILY PRN (Reason: traveling) RF: 0 lisinopril 5 mg tablet 5 mg PO DAILY@1400 RF: 0 metoprolol succinate 25 mg tablet extended release 24 hr 12.5 mg PO DAILY@2230 RF: 0 hydroxychloroquine 200 mg tablet 200 mg PO DAILY@1400 RF: 0 cholecalciferol (vitamin D3) [Vitamin D3] 25 mcg (1,000 unit) Capsule 25 mcg PO DAILY@1400 RF: 0 calcium carbonate-vitamin D3 [Oysco 500/D] 500 mg(1,250mg) -200 unit tablet 1 tab PO DAILY@1400 RF: 0 potassium chloride 20 mEq tablet extended release 20 meq PO DAILY@1400 RF: 0 Discharge Orders: Discharge Order (Routine); Ordered 02/03/20 Ordered By: Pablo Howard/Other Patient Handouts: ED Pyelonephritis, Female (Adult) Admission Data Admit Date/Time: 02/01/20 20:32 Attending Provider: Cipriano Blevins Admit Provider: Michael Gibson Primary Care Provider: Alexandria Andrea Other Providers: Brian Clark ; Concepción Caldwell ; Jb Mendoza Other Interventions: Discharge Summary Assessment (RN) Last Done: 02/03/20 12:05 DC Date/Time DO NOT enter until pt leaves facility: 02/03/20 14:57 Supervising Physician Co-Signing Physician Notes I personally examined the patient and verified all chowdary points of history and exam, discussed case, and agree with decision making with Dr Larios. feels good wants to go home vitals noted nad heent nc at mmm breathing unlabored no accessory muscles good effort skin no rashes no pallor or icterus pyelonephritis in the setting of lupus/lupus nephritis and chronic immunosuppressive use - improved dramatically. safe for home on cefdinir as above. Resident Activity Tracking Resident Involvement: Resident Care Provided Care Provided: Adult Hospital Medicine
[2020-02-03] MEDS: CALCIUM 600MG + VIT D 400 IU TAB PO SCH (13:44)
[2020-02-03] MEDS: azaTHIOprine 25 MG TAB PO SCH (13:45)
[2020-02-03] MEDS: POTASSIUM CHLORIDE 20 MEQ TABCR PO SCH (13:46)
[2020-02-03] MEDS: HYDROXYCHLOROQUINE SULFATE 200 MG TAB PO SCH (13:46)
[2020-02-03] MEDS: MULTIVITAMIN TAB PO SCH (13:46)
[2020-02-03] MEDS: CHOLECALCIFEROL 1,000 UNITS 25 MCG TAB PO SCH (13:46)
[2020-02-03] MEDS: lisinopriL 5 MG TAB PO SCH (13:47)
--- NOTE | 2020-02-03 19:39 | Billing Data ---
Date of Service February 03, 2020 Coding Level of Care Code 59666 OBS Care - Discharge
== END 2020-02-03 14:57 | disposition home or self-care (01) ==
LOC: ED 12:38 → 3N 12:38 → SUATTDRO 20:32 → 3N 21:20

== ENCOUNTER 2020-04-27 10:14 | Observation (INO) ==
[2020-04-27] MEDS ORDERED: cefTRIAXone SODIUM 1,000 MG/50 ML BAG IV STA (10:22)
[2020-04-27] MEDS ORDERED: SODIUM CHLORIDE 0.9% 1000ML 1,000 ML IV ONE (10:24)
--- NOTE | 2020-04-27 10:29 | Emergency Department Note ---
Impression & Plan Sepsis, Pyelonephritis, Neurogenic bladder ED Provider Note NAME: SHIRA PAULINO AGE: 34 SEX: F : 1985 ARRIVES VIA: Ambulance INFORMANT: Patient ED PROVIDER(S): Cipriano Humphries DO CHIEF COMPLAINT: Abdominal pain flank pain and fevers HPI: Patient is a 34-year-old female with a past medical history of transverse myelitis, lupus, pyelonephritis who straight caths presents to the ER for back pain and fevers. Everything started this past Tuesday with some fevers. She straight caths about 4 times a day. She started having back pain bilaterally worse on the left and lower belly pain. She notes this feels like the previous time that she has had UTIs. Fevers been as high as 102. Patient denies any headache, change in vision, chest pain shortness of breath or vomiting. Last bowel movement was this morning. No other exacerbating or remitting factors. ROS: See above HPI for pertinent positives & negatives. A total of 10 systems reviewed and were otherwise negative. PAST MEDICAL HISTORY:See Below PAST SURGICAL HISTORY:See Below FAMILY HISTORY:See Below SOCIAL HISTORY:See Below HOME MEDICATIONS:See Below ALLERGIES:See Below VITALS:See Below PHYSICAL EXAMINATION: GENERAL: Sitting up in bed, alert, disheveled, no acute distress EYE EXAM: normal conjunctiva. OROPHARYNX: no exudate, no erythema, lips, buccal mucosa, and tongue normal and mucous membranes are moist NECK: supple, no nuchal rigidity, no adenopathy, non-tender LUNGS: Clear to auscultation. Normal chest wall mechanics HEART: Tachycardic, S1 normal and S2 normal ABDOMEN: abdomen soft, tender in left lower quadrant, normo-active bowel sounds, no masses, no rebound or guarding. BACK: Back is symmetrical on inspection and there is no deformity, no midline tenderness, no CVA tenderness. SKIN: no rashes and no bruising UPPER EXTREMITIES: upper extremities are grossly normal. LOWER EXTREMITIES: Legs are flexed and moved with upper extremities. NEURO EXAM: Normal sensorium, cranial nerves II-XII grossly intact, normal speech, no gross weakness of arms. MEDICAL DECISION MAKING: Patient is a 34-year-old female with past medical history of transverse myelitis with self collapsed secondary to neurogenic bladder. She presents for fever and flank and back pain. IV was established blood work was obtained. Patient was febrile and tachycardic. White count was 19,000. Heart rate was in the 120s to 130s. Hemoglobin with mild anemia. BMP with mild hypokalemia. Lactate was normal. Lipase was normal. LFTs and bilirubin was unremarkable. UA consistent with a UTI with nitrates, leuks, whites and bacteria without epithelial cells. She was given IV fluids and IV antibiotics. She was updated bedside. CT abdomen pelvis shows pyelonephritis. There was some mild hydro-. Case was discussed with hospitalist and she was admitted for further work-up of her sepsis and pyelonephritis. Triage Nursing notes reviewed. Prior medical records reviewed Vital Signs: reviewed and remarkable for tachy Differential diagnosis: Differential diagnosis includes etiologies such as sepsis, UTI, pneumonia, metabolic, electrolyte abnormalities, cardiac sources, intracerebral event, toxicologic, neurological, as well as others were entertained. ER treatment provided: See below Diagnostics interpreted by me: ECG: none Cardiac Monitoring: An order was placed for continuous cardiac monitoring. The monitor shows a rate of 130 with sinus rhythm. Laboratory studies: As stated above and show below. Imaging studies: CT abdomen pelvis shows pyelonephritis with mild hydronephrosis. Consultation(s): D/w with hospitalist for further evaluation ED COURSE: Procedures: none Critical Care: I have personally spent 32 minutes of critical care time in the direct management of this patient. This includes bedside care, interpretation of alek gnostic studies, and testing, discussion with consultants, patient, and family members, and other required patient management activities. This 32 minutes is in excess of all separately billable procedures. Past Med/Surg History Medical History (Updated 04/27/20 @ 16:27 by Cipriano Humphries DO) Lupus Social History Smoking Status: Never smoker Second Hand Exposure: No; Do You Dip or Chew Tobacco: No; Tobacco Cessation Education Requested by Patient: No Hx Alcohol Use: No Hx Substance Use: No Preferred Language: Tajik Communication Ability: Effective Ethnoarchaeologist Required: No Beliefs That Will Affect Care: None Current Living Situation: Alone Other Information That Helps Us Care for You: No Feels Safe at Home: Yes Safety Concerns: Feels Safe At This Time Assistive Devices: Wheelchair Allergies Allergies Allergy/AdvReac Type Severity Reaction Status Date / Time Fish Containing Products Allergy Severe ANAPHYLAXIS Verified 04/27/20 12:27 peanut Allergy Severe ANAPHYLAXIS Verified 04/27/20 12:27 salmon oil Allergy Severe ANAPHYLAXIS Verified 04/27/20 12:27 shellfish derived Allergy Severe ANAPHYLAXIS Verified 04/27/20 12:27 adhesive Allergy Intermediate SKIN GETS Verified 04/27/20 12:27 RED AND PAINFUL latex Allergy Intermediate SKIN GETS Verified 04/27/20 12:27 RED AND PAINFUL mold Allergy Intermediate SNEEZING Verified 04/27/20 12:27 AND COUGHING ertapenem Allergy Unknown HIVES Unverified 04/27/20 12:27 noe Allergy Verified 04/27/20 12:27 sulfamethoxazole AdvReac Mild Gastrointestinal Verified 04/27/20 12:27 [From Bactrim] Upset trimethoprim [From Bactrim] AdvReac Mild Gastrointestinal Verified 04/27/20 12:27 Upset milk AdvReac Unknown GI SYMPTOMS Verified 04/27/20 12:27 Dust Allergy Intermediate SNEEZING Uncoded 04/27/20 12:27 AND COUGHING carmichael noe Allergy Intermediate lips and Uncoded 04/27/20 12:27 mouth swell Home Meds Home Medications Medication Instructions Recorded Confirmed aspirin 81 mg PO DAILY PRN 02/01/20 04/27/20 azathioprine 75 mg PO DAILY@139902/01/20 04/27/20 calcium carbonate-vitamin D3 1 tab PO DAILY@139902/01/20 04/27/20 [Oysco 500/D] cholecalciferol (vitamin D3) 25 mcg PO DAILY@139902/01/20 04/27/20 [Vitamin D3] fenofibrate micronized 200 mg PO DAILY@139902/01/20 04/27/20 hydroxychloroquine 100 mg PO DAILY@139902/01/20 04/27/20 lisinopril 5 mg PO DAILY@139902/01/20 04/27/20 metoprolol succinate 12.5 mg PO DAILY@222902/01/20 04/27/20 multivitamin 1 tab PO DAILY@139902/01/20 04/27/20 potassium chloride 20 meq PO DAILY@139902/01/20 04/27/20 ferrous sulfate [iron] 325 mg PO DAILY@139904/27/20 04/27/20 Results & Data (ED) Vital Signs Vital Signs - 24 hr 04/27/20 10:16 04/27/20 10:20 04/27/20 11:30 Temperature 37.4 C Temperature Source Oral Pulse Rate 122 H 132 H 132 H Pulse Rate from SpO2 Sensor 128 H Pulse Rhythm Regular Respiratory Rate 20 20 Blood Pressure 115/69 115/69 Blood Pressure Mean 101 84 Pulse Oximetry 93 100 100 Oxygen Delivery Method Room Air Room Air Sepsis Recent Fever Within 48 Hours No Sepsis New/Unexplained Change in Mental Status N/A Sepsis Action Taken by Nursing No Action Required 04/27/20 12:25 04/27/20 12:29 Temperature Temperature Source Pulse Rate 114 H 126 H Pulse Rate from SpO2 Sensor 120 H 127 H Pulse Rhythm Respiratory Rate 20 20 Blood Pressure 124/73 134/80 Blood Pressure Mean 84 88 Pulse Oximetry 100 100 Oxygen Delivery Method Sepsis Recent Fever Within 48 Hours Sepsis New/Unexplained Change in Mental Status Sepsis Action Taken by Nursing Laboratory Data Result diagrams: 04/27/20 10:32 04/27/20 10:32 Lab Results 04/27/20 04/27/20 04/27/20 Range/Units 10:32 10:32 10:32 WBC 18.66 H (4.8-10.8) K/uL RBC 3.80 L (4.2-5.4) M/uL Hgb 11.4 L (12.0-16.0) g/dL POC Hgb (12.0-16.0) g/dl Hct 33.2 L (37-47) % POC Hct (37-47) % MCV 87.4 (80-100) fL MCH 30.0 (25-34) pg MCHC 34.3 (32-36) g/dL RDW Std Deviation 46.9 H (36.4-46.3) fL RDW Coeff of Rey 14.7 H (11.5-14.5) % Plt Count 384 (130-400) K/uL MPV 9.9 (7.4-10.4) fL Immature Gran % (Auto) 0.3 % Neut % (Auto) 85.1 % Lymph % (Auto) 5.3 % [place] % (Auto) 8.7 % Eos % (Auto) 0.5 % Baso % (Auto) 0.1 % Neut # (Auto) 15.89 H (1.4-6.5) K/uL Lymph # (Auto) 0.99 L (1.2-3.4) K/uL [place] # (Auto) 1.62 H (0.11-0.59) K/uL Eos # (Auto) 0.10 (0-0.5) K/uL Baso # (Auto) 0.01 (0-0.2) K/uL Immature Gran # (Auto) 0.05 H (0.00-0.02) K/uL POC Sodium (135-144) mmol/L Sodium 140 (136-145) mmol/L POC Potassium (3.3-5.0) mmol/L Potassium 3.3 L (3.5-5.1) mmol/L POC Chloride (101-112) mmol/L Chloride 112 H (98-107) mmol/L Carbon Dioxide 21 (21-32) mmol/L POC Total CO2 (24-31) mmol/L Anion Gap 7.0 (3-11) POC Anion Gap (16-25) mmol/L POC BUN (7-18) mg/dl BUN 36 H (7-18) mg/dl Creatinine 0.98 (0.6-1.2) mg/dl POC Creatinine (0.6-1.3) mg/dl Est Cr Clr Drug Dosing Not Reportable Est GFR ( Amer) 86.6 Est GFR (Non-Af Amer) 74.7 BUN/Creatinine Ratio 37.0 H (10-20) Glucose 89 (70-99) mg/dl POC Glucose (other) (70-99) mg/dl Lactate 1.2 (0.4-2.0) mmol/L Calcium 9.1 (8.5-10.1) mg/dl POC Ioniz Calcium Jorje (1.12-1.32) mmol/l Total Bilirubin 0.3 (0.2-1) mg/dl AST 18 (15-37) U/L ALT 27 (12-78) U/L Alkaline Phosphatase 47 (45-117) U/L Total Protein 7.3 (6.4-8.2) gm/dl Albumin 3.2 L (3.4-5.0) gm/dl Globulin 4.1 H (2.5-4.0) gm/dl Albumin/Globulin Ratio 0.8 L (0.9-2) Lipase 213 (73-393) U/L Urine Color Urine Appearance (Clear) Urine pH (4.5-7.5) Ur Specific [place] (1.000-1.030) Urine Protein (Negative) Urine Glucose (UA) (Negative) Urine Ketones (Negative) Urine Blood (Negative) Urine Nitrite (Negative) Urine Bilirubin (Negative) Urine Urobilinogen (Negative) Ur Leukocyte Esterase (Negative) Urine WBC (Auto) (0-5) /hpf Urine RBC (Auto) (0-4) /hpf U Hyaline Cast (Auto) (0-5) /lpf U Epithel Cells (Auto) (0-5) /lpf Urine Bacteria (Auto) (Negative) 04/27/20 04/27/20 Range/Units 10:48 11:30 WBC (4.8-10.8) K/uL RBC (4.2-5.4) M/uL Hgb (12.0-16.0) g/dL POC Hgb 12.2 (12.0-16.0) g/dl Hct (37-47) % POC Hct 36 L (37-47) % MCV (80-100) fL MCH (25-34) pg MCHC (32-36) g/dL RDW Std Deviation (36.4-46.3) fL RDW Coeff of Rey (11.5-14.5) % Plt Count (130-400) K/uL MPV (7.4-10.4) fL Immature Gran % (Auto) % Neut % (Auto) % Lymph % (Auto) % [place] % (Auto) % Eos % (Auto) % Baso % (Auto) % Neut # (Auto) (1.4-6.5) K/uL Lymph # (Auto) (1.2-3.4) K/uL [place] # (Auto) (0.11-0.59) K/uL Eos # (Auto) (0-0.5) K/uL Baso # (Auto) (0-0.2) K/uL Immature Gran # (Auto) (0.00-0.02) K/uL POC Sodium 141 (135-144) mmol/L Sodium (136-145) mmol/L POC Potassium 3.4 (3.3-5.0) mmol/L Potassium (3.5-5.1) mmol/L POC Chloride 109 (101-112) mmol/L Chloride (98-107) mmol/L Carbon Dioxide (21-32) mmol/L POC Total CO2 18 L (24-31) mmol/L Anion Gap (3-11) POC Anion Gap 19.0 (16-25) mmol/L POC BUN 33 H (7-18) mg/dl BUN (7-18) mg/dl Creatinine (0.6-1.2) mg/dl POC Creatinine 0.9 (0.6-1.3) mg/dl Est Cr Clr Drug Dosing Est GFR ( Amer) Est GFR (Non-Af Amer) BUN/Creatinine Ratio (10-20) Glucose (70-99) mg/dl POC Glucose (other) 84 (70-99) mg/dl Lactate (0.4-2.0) mmol/L Calcium (8.5-10.1) mg/dl POC Ioniz Calcium Jorje 1.20 (1.12-1.32) mmol/l Total Bilirubin (0.2-1) mg/dl AST (15-37) U/L ALT (12-78) U/L Alkaline Phosphatase (45-117) U/L Total Protein (6.4-8.2) gm/dl Albumin (3.4-5.0) gm/dl Globulin (2.5-4.0) gm/dl Albumin/Globulin Ratio (0.9-2) Lipase (73-393) U/L Urine Color Yellow Urine Appearance Cloudy A (Clear) Urine pH 5.0 (4.5-7.5) Ur Specific [place] 1.011 (1.000-1.030) Urine Protein Trace H (Negative) Urine Glucose (UA) Negative (Negative) Urine Ketones Negative (Negative) Urine Blood 2+ H (Negative) Urine Nitrite Positive A (Negative) Urine Bilirubin Negative (Negative) Urine Urobilinogen Negative (Negative) Ur Leukocyte Esterase 3+ H (Negative) Urine WBC (Auto) >30 H (0-5) /hpf Urine RBC (Auto) 0-4 (0-4) /hpf U Hyaline Cast (Auto) 0 (0-5) /lpf U Epithel Cells (Auto) 0-5 (0-5) /lpf Urine Bacteria (Auto) 1+ H (Negative) Administered Medications Acetaminophen (Acetaminophen 325 Mg Tab) 650 mg PO Q4H PRN PRN Reason: pain/fever Stop: 05/27/20 14:02 Last Admin: 04/27/20 14:35 Dose: 650 mg Documented by: [id number] Azathioprine (Azathioprine 25 Mg Tab) 75 mg PO DAILY@1400 AMITA Stop: 05/27/20 14:02 Last Admin: 04/27/20 15:03 Dose: 75 mg Documented by: [id number] Hydroxychloroquine Sulfate (Hydroxychloroquine Sulfate 200 Mg Tab) 100 mg PO DAILY@1400 AMITA Stop: 05/27/20 14:14 Last Admin: 04/27/20 15:02 Dose: 100 mg Documented by: [id number] Lactated Ringer's (Lr) 1,000 mls @ 125 mls/hr IV .Q8H AMITA Stop: 04/28/20 06:02 Last Admin: 04/27/20 14:15 Dose: 125 mls/hr Documented by: [id number] Lisinopril (Lisinopril 5 Mg Tab) 5 mg PO DAILY@1400 AMITA Stop: 05/27/20 14:14 Last Admin: 04/27/20 15:05 Dose: 5 mg Documented by: [id number] Discontinued Medications Ceftriaxone Sodium (Rocephin) 1,000 mg in 50 mls @ 100 mls/hr IV NOW STA Stop: 04/27/20 10:51 Last Infusion: 04/27/20 12:54 Dose: 0 mls/hr Documented by: [id number] Admin: 04/27/20 11:54 Dose: 100 mls/hr Documented by: [id number] Sodium Chloride (Nss 1000ml) 1,000 mls @ 999 mls/hr IV .Q1H1M ONE Stop: 04/27/20 11:24 Last Infusion: 04/27/20 12:55 Dose: 0 mls/hr Documented by: [id number] Admin: 04/27/20 11:55 Dose: 999 mls/hr Documented by: [id number] Ioversol (Ioversol 100ml) 94 ml IV ONCE ONE Stop: 04/27/20 11:44 Last Admin: 04/27/20 11:44 Dose: 94 ml Documented by: [id number] Potassium Chloride (Potassium Chloride 20 Meq Tabcr) 40 meq PO NOW STA Stop: 04/27/20 14:04 Last Admin: 04/27/20 14:36 Dose: 40 meq Documented by: [id number] Discharge Plan Visit Data Chief Complaint: Abdominal Pain ED Provider: Cipriano Humphries Discharge Problem: Sepsis, Pyelonephritis, Neurogenic bladder Patient Disposition: Admitted As Inpatient Discharge Instructions Interventions: ED Discharge Assessment Last Done: 04/27/20 13:27 Discharge Problem: Sepsis Qualifiers: Sepsis type: sepsis due to unspecified organism Sepsis acute organ dysfunction status: unspecified Qualified Code(s): A41.9 - Sepsis, unspecified organism
[2020-04-27 10:53] LABS: Basophils # (auto) 0.01 K/uL (0-0.2); Basophils % (auto) 0.1 %; Eosinophils % (auto) 0.5 %; Hematocrit (blood only) 33.2 % (37-47); Hemoglobin 11.4 g/dL (12.0-16.0); Immature Granulocytes # (auto) 0.05 K/uL (0.00-0.02); Immature Granulocytes % (auto) 0.3 %; Lymphocytes # (auto) 0.99 K/uL (1.2-3.4); Lymphocytes % (auto) 5.3 %; Mean Corpuscular Hgb Conc 34.3 g/dL (32-36); Mean Corpuscular Volume 87.4 fL (80-100); Mean Platelet Volume 9.9 fL (7.4-10.4); Monocytes # (auto) 1.62 K/uL (0.11-0.59); Monocytes % (auto) 8.7 %; Neutrophils # (auto) 15.89 K/uL (1.4-6.5); Neutrophils % (auto) 85.1 %; Platelet Count 384 K/uL (130-400); RDW Coefficient of Variation 14.7 % (11.5-14.5); RDW Standard Deviation 46.9 fL (36.4-46.3); White Blood Count 18.66 K/uL (4.8-10.8)
[2020-04-27 11:01] LABS: iSTAT Creatinine 0.9 mg/dl (0.6-1.3); iSTAT Hemoglobin 12.2 g/dl (12.0-16.0); iSTAT Ionized Calcium 1.2 mmol/l (1.12-1.32); iSTAT Potassium 3.4 mmol/L (3.3-5.0)
[2020-04-27 11:22] LABS: Alanine Aminotransferase 27 U/L (12-78); Albumin Level 3.2 gm/dl (3.4-5.0); Aspartate Aminotransferase 18 U/L (15-37); Blood Urea Nitrogen 36 mg/dl (7-18); Calcium 9.1 mg/dl (8.5-10.1); Carbon Dioxide 21 mmol/L (21-32); Chloride 112 mmol/L (98-107); Est GFR (African American) 86.6; Est GFR (Non-African American) 74.7; Glucose 89 mg/dl (70-99); Lipase 213 U/L (73-393); Potassium 3.3 mmol/L (3.5-5.1); Sodium 140 mmol/L (136-145)
[2020-04-27 11:25] LABS: Albumin Globulin Ratio 0.8 (0.9-2); Alkaline Phosphatase 47 U/L (45-117); Bilirubin,Total 0.3 mg/dl (0.2-1); Globulin 4.1 gm/dl (2.5-4.0); Total Protein 7.3 gm/dl (6.4-8.2)
[2020-04-27 11:42] LABS: Appearance Urine Cloudy (Clear); Bacteria Urine Automated 1+ (Negative); Bilirubin Urine Negative (Negative); Blood Urine 2+ (Negative); Cast Urine Automated 0 /lpf (0-5); Color Urine Yellow; Epithelial Cell Urine Auto 0-5 /lpf (0-5); Glucose Urine UA Negative (Negative); Ketones Urine Negative (Negative); Leukocyte Esterase Urine 3+ (Negative); Nitrite Urine Positive (Negative); Protein Urine Trace (Negative); RBC Urine Automated 0-4 /hpf (0-4); Specific Gravity Urine 1.011 (1.000-1.030); Urobilinogen Urine Negative (Negative); WBC Urine Automated >30 /hpf (0-5)
[2020-04-27] MEDS ORDERED: IOVERSOL 100ml IV ONE (11:43)
--- NOTE | 2020-04-27 12:01 | CT Scan Report ---
CT abd pelvis IV con only CLINICAL HISTORY: Severe abdominal and back pain with fever. COMPARISON STUDY: February 01, 2020 TECHNIQUE: The patient was scanned in a dynamic helical fashion during intravenous administration of 94 cc of Optiray 320. A dose lowering technique was utilized adhering to the principles of ALARA. CT DOSE: 314.60 mGy.cm FINDINGS: Lower chest: The heart is normal in size and configuration, without pericardial effusion. The lung ba ses and pleural spaces are clear. Liver: There is a 4 cm right lobe hepatic mass demonstrating peripheral nodular enhancement. This lik nisha represents a hemangioma. Gallbladder: Unremarkable. Spleen: Normal in size and attenuation. Pancreas: Unremarkable. Adrenal glands: Unremarkable. Kidneys: There is a 2 mm lower pole nonobstructing right renal calculus. There is subtle right-sided uroepithelial enhancement. There is right-sided ureteral dilatation. There is a 17 mm ureterocele. No obstructing ureteral calculi are visualized. Clinical correlation regards to an upper tract urinary infection is recommended. Bowel: There are no transition zones to indicate bowel obstruction. There is no evidence of acute div erticulitis. There is fecal retention suggesting constipation. The appendix is not visualized with ce rtainty. There is no convincing evidence of acute appendicitis given the limitations of a study perfo rmed without oral contrast. Peritoneum: There is no intraperitoneal free air or abdominal ascites. Vasculature: The abdominal aorta is normal in course and caliber. Adenopathy: None. Pelvic viscera: There is a right-sided ureterocele. There is gas present within the bladder likely ia trogenic. Skeletal structures: There is evidence of hip dysplasia. There is chronic subluxation of the left hip . There is chronic destruction of the left femoral head. There is an old left ischio pubic ring fract ure. There is a thoracolumbar levoscoliosis. IMPRESSION: 1. No evidence of bowel obstruction. No evidence of free air 2. Right-sided nephrolithiasis 3. 4 cm right lobe hepatic mass likely representing a hepatic hemangioma 4. Right-sided ureterocele. Mild right ureteral dilatation. Mild right-sided perinephric stranding wi th mild uroepithelial enhancement. Clinical correlation in regards to an upper tract urinary tract in fection is recommended. 5. Moderate fecal load suggesting constipation ACT 112: Negative or not required by law. Electronically signed by: Bull Robins M.D. 04/27/2020 12:00 PM
--- NOTE | 2020-04-27 12:47 | History & Physical Report ---
Date of Service April 27, 2020 Assessment & Plan (1) Pyelonephritis: 34yo female with history of Lupus, transverse myelitis with T10 Paraplegia, Neurogenic bladder presenting with pyelonephritis. Patient febrile, tachycardic with leukocytosis. +UA. CT with right sided ureterocele, dilation. Mild perinephric stranding. Prior cultures with palomares-sensitive E. coli -Admit to medical -Follow cultures -Ceftriaxone 1gm IV daily -LR at 125mL/hr x 2 liters -Consider Urology consultation Present on Admission?: Yes (2) Lupus: Chronic. Stable without acute flare. Patient had a renal biopsy in the past with nephritis. She follows with Dr. Horvath -Continue Hydroxychloroquine -Continue Azathioprine Present on Admission?: Yes (3) Neurogenic bladder: Patient did have a chronic indwelling Millan in the past for many years. Currently she is self-catheterizing routinely without difficulty. She reports drinking 2-3 liters per day as well as a solution of lemon water to help acidify her urine (12oz/day 5days/week). -Continue to straight cath as needed F/E/N - LR at 125mL/hr x 2 L, monitor electrolytes, BMP in AM, Regular diet as tolerated, Colace PRN - stool noted on CT Ppx - Heparin BID for DVT PPX Code- Full Dispo - Admit to medical Present on Admission?: Yes (4) Transverse myelitis: History of Present Illness Chief Complaint: Pyelonephritis Primary Care Provider: Alexandria Quezada is a pleasant 34yo C female with history of Lupus, transverse myelitis at T10 with paraplegia, neurogenic bladder. Patient self-caths 3-4 times daily. Patient developed a fever on . Symptoms improved with increased fluid intake and Tylenol. Last night she became febrile again to 102.3, +rigors, +back pain and decreased UOP which prompted her to come to the ER. On arrival patient febrile, tachycardic. Blood pressure stable. Mild pain in the back. No additional complaints. Patient denies CP/SOB/cough. No recent travel. No Covid-19 exposure. ER Course: Ceftriaxone 1gm Allergies Allergy/AdvReac Type Severity Reaction Status Date / Time Fish Containing Products Allergy Severe ANAPHYLAXIS Verified 04/27/20 12:27 peanut Allergy Severe ANAPHYLAXIS Verified 04/27/20 12:27 salmon oil Allergy Severe ANAPHYLAXIS Verified 04/27/20 12:27 shellfish derived Allergy Severe ANAPHYLAXIS Verified 04/27/20 12:27 adhesive Allergy Intermediate SKIN GETS Verified 04/27/20 12:27 RED AND PAINFUL latex Allergy Intermediate SKIN GETS Verified 04/27/20 12:27 RED AND PAINFUL mold Allergy Intermediate SNEEZING Verified 04/27/20 12:27 AND COUGHING ertapenem Allergy Unknown HIVES Unverified 04/27/20 12:27 noe Allergy Verified 04/27/20 12:27 sulfamethoxazole AdvReac Mild Gastrointestinal Verified 04/27/20 12:27 [From Bactrim] Upset trimethoprim [From Bactrim] AdvReac Mild Gastrointestinal Verified 04/27/20 12:27 Upset milk AdvReac Unknown GI SYMPTOMS Verified 04/27/20 12:27 Dust Allergy Intermediate SNEEZING Uncoded 04/27/20 12:27 AND COUGHING carmichael noe Allergy Intermediate lips and Uncoded 04/27/20 12:27 mouth swell Home Medications Home Medications Medication Instructions Recorded Confirmed Type aspirin 81 mg PO DAILY PRN 02/01/20 04/27/20 History azathioprine 75 mg PO DAILY@139902/01/20 04/27/20 History calcium carbonate-vitamin D3 1 tab PO DAILY@139902/01/20 04/27/20 History [Oysco 500/D] cholecalciferol (vitamin D3) 25 mcg PO DAILY@139902/01/20 04/27/20 History [Vitamin D3] fenofibrate micronized 200 mg PO DAILY@139902/01/20 04/27/20 History hydroxychloroquine 100 mg PO DAILY@139902/01/20 04/27/20 History lisinopril 5 mg PO DAILY@139902/01/20 04/27/20 History metoprolol succinate 12.5 mg PO DAILY@22302/01/20 04/27/20 History multivitamin 1 tab PO DAILY@139902/01/20 04/27/20 History potassium chloride 20 meq PO DAILY@139902/01/20 04/27/20 History ferrous sulfate [iron] 325 mg PO DAILY@139904/27/20 04/27/20 History Past Med/Surg History Medical History (Updated 04/27/20 @ 20:50 by Concepción Caldwell DO) Lupus Neurogenic bladder Transverse myelitis T10 paraplegia Surgical History (Updated 04/27/20 @ 20:40 by Concepción Caldwell DO) Status post skin flap graft Family History (Updated 04/27/20 @ 20:41 by Concepción Caldwell DO) Other Family history non-contributory Social History Smoking Status: Never smoker Second Hand Exposure: No; Do You Dip or Chew Tobacco: No; Tobacco Cessation Education Requested by Patient: No Hx Alcohol Use: No Hx Substance Use: No Preferred Language: Mozambican Communication Ability: Effective Butt Welder Required: No Beliefs That Will Affect Care: None Current Living Situation: Alone Other Information That Helps Us Care for You: No Feels Safe at Home: Yes Safety Concerns: Feels Safe At This Time Assistive Devices: Wheelchair Review of Systems Review of Systems: All systems reviewed & are unremarkable except as noted in HPI & below +Poor sleep +Palpitations Physical Exam Physical Exam: General: thin female patient resting, uncomfortable, NAD, non- toxic in appearance, AA&O x 4 Skin: warm, dry, intact, no rashes or lesions HEENT: NC/AT, PERRL, EOMI, anicteric sclera, conjunctiva without injection, external ear normal to inspection and nontender, nares patent, dry mucus membranes, dentition intact, no oropharyngeal lesions, neck supple, trachea midline, no LAD, no thyromegaly, no JVD Heart: +S1/S2, regular, tachycardic, no m/r/g Lungs: equal air entry bilaterally, no rales/rhonchi/wheezes Abd: +BS, soft, NT/ND, no masses/organomegaly/ascites Ext: warm, 2+ pulses in UE/LE bilaterally, no clubbing/cyanosis or edema Neuro: paraplegia T10 level, MS 5/5 in UE Results & Data Results & Data ([facility]) Vital Signs (Past 12 Hours) Vital Signs Temp Pulse Resp BP Pulse Ox 04/27/20 11:30 132 H 20 100 04/27/20 10:20 37.4 C 132 H 20 115/69 100 Laboratory Results Lab Results 04/27/20 04/27/20 04/27/20 Range/Units 10:32 10:32 10:32 WBC 18.66 H (4.8-10.8) K/uL RBC 3.80 L (4.2-5.4) M/uL Hgb 11.4 L (12.0-16.0) g/dL POC Hgb (12.0-16.0) g/dl Hct 33.2 L (37-47) % POC Hct (37-47) % MCV 87.4 (80-100) fL MCH 30.0 (25-34) pg MCHC 34.3 (32-36) g/dL RDW Std Deviation 46.9 H (36.4-46.3) fL RDW Coeff of Rey 14.7 H (11.5-14.5) % Plt Count 384 (130-400) K/uL MPV 9.9 (7.4-10.4) fL Immature Gran % (Auto) 0.3 % Neut % (Auto) 85.1 % Lymph % (Auto) 5.3 % [place] % (Auto) 8.7 % Eos % (Auto) 0.5 % Baso % (Auto) 0.1 % Neut # (Auto) 15.89 H (1.4-6.5) K/uL Lymph # (Auto) 0.99 L (1.2-3.4) K/uL [place] # (Auto) 1.62 H (0.11-0.59) K/uL Eos # (Auto) 0.10 (0-0.5) K/uL Baso # (Auto) 0.01 (0-0.2) K/uL Immature Gran # (Auto) 0.05 H (0.00-0.02) K/uL POC Sodium (135-144) mmol/L Sodium 140 (136-145) mmol/L POC Potassium (3.3-5.0) mmol/L Potassium 3.3 L (3.5-5.1) mmol/L POC Chloride (101-112) mmol/L Chloride 112 H (98-107) mmol/L Carbon Dioxide 21 (21-32) mmol/L POC Total CO2 (24-31) mmol/L Anion Gap 7.0 (3-11) POC Anion Gap (16-25) mmol/L POC BUN (7-18) mg/dl BUN 36 H (7-18) mg/dl Creatinine 0.98 (0.6-1.2) mg/dl POC Creatinine (0.6-1.3) mg/dl Est Cr Clr Drug Dosing Not Reportable Est GFR ( Amer) 86.6 Est GFR (Non-Af Amer) 74.7 BUN/Creatinine Ratio 37.0 H (10-20) Glucose 89 (70-99) mg/dl POC Glucose (other) (70-99) mg/dl Lactate 1.2 (0.4-2.0) mmol/L Calcium 9.1 (8.5-10.1) mg/dl POC Ioniz Calcium Jorje (1.12-1.32) mmol/l Total Bilirubin 0.3 (0.2-1) mg/dl AST 18 (15-37) U/L ALT 27 (12-78) U/L Alkaline Phosphatase 47 (45-117) U/L Total Protein 7.3 (6.4-8.2) gm/dl Albumin 3.2 L (3.4-5.0) gm/dl Globulin 4.1 H (2.5-4.0) gm/dl Albumin/Globulin Ratio 0.8 L (0.9-2) Lipase 213 (73-393) U/L Urine Color Urine Appearance (Clear) Urine pH (4.5-7.5) Ur Specific [place] (1.000-1.030) Urine Protein (Negative) Urine Glucose (UA) (Negative) Urine Ketones (Negative) Urine Blood (Negative) Urine Nitrite (Negative) Urine Bilirubin (Negative) Urine Urobilinogen (Negative) Ur Leukocyte Esterase (Negative) Urine WBC (Auto) (0-5) /hpf Urine RBC (Auto) (0-4) /hpf U Hyaline Cast (Auto) (0-5) /lpf U Epithel Cells (Auto) (0-5) /lpf Urine Bacteria (Auto) (Negative) 04/27/20 04/27/20 Range/Units 10:48 11:30 WBC (4.8-10.8) K/uL RBC (4.2-5.4) M/uL Hgb (12.0-16.0) g/dL POC Hgb 12.2 (12.0-16.0) g/dl Hct (37-47) % POC Hct 36 L (37-47) % MCV (80-100) fL MCH (25-34) pg MCHC (32-36) g/dL RDW Std Deviation (36.4-46.3) fL RDW Coeff of Rey (11.5-14.5) % Plt Count (130-400) K/uL MPV (7.4-10.4) fL Immature Gran % (Auto) % Neut % (Auto) % Lymph % (Auto) % [place] % (Auto) % Eos % (Auto) % Baso % (Auto) % Neut # (Auto) (1.4-6.5) K/uL Lymph # (Auto) (1.2-3.4) K/uL [place] # (Auto) (0.11-0.59) K/uL Eos # (Auto) (0-0.5) K/uL Baso # (Auto) (0-0.2) K/uL Immature Gran # (Auto) (0.00-0.02) K/uL POC Sodium 141 (135-144) mmol/L Sodium (136-145) mmol/L POC Potassium 3.4 (3.3-5.0) mmol/L Potassium (3.5-5.1) mmol/L POC Chloride 109 (101-112) mmol/L Chloride (98-107) mmol/L Carbon Dioxide (21-32) mmol/L POC Total CO2 18 L (24-31) mmol/L Anion Gap (3-11) POC Anion Gap 19.0 (16-25) mmol/L POC BUN 33 H (7-18) mg/dl BUN (7-18) mg/dl Creatinine (0.6-1.2) mg/dl POC Creatinine 0.9 (0.6-1.3) mg/dl Est Cr Clr Drug Dosing Est GFR ( Amer) Est GFR (Non-Af Amer) BUN/Creatinine Ratio (10-20) Glucose (70-99) mg/dl POC Glucose (other) 84 (70-99) mg/dl Lactate (0.4-2.0) mmol/L Calcium (8.5-10.1) mg/dl POC Ioniz Calcium Jorje 1.20 (1.12-1.32) mmol/l Total Bilirubin (0.2-1) mg/dl AST (15-37) U/L ALT (12-78) U/L Alkaline Phosphatase (45-117) U/L Total Protein (6.4-8.2) gm/dl Albumin (3.4-5.0) gm/dl Globulin (2.5-4.0) gm/dl Albumin/Globulin Ratio (0.9-2) Lipase (73-393) U/L Urine Color Yellow Urine Appearance Cloudy A (Clear) Urine pH 5.0 (4.5-7.5) Ur Specific [place] 1.011 (1.000-1.030) Urine Protein Trace H (Negative) Urine Glucose (UA) Negative (Negative) Urine Ketones Negative (Negative) Urine Blood 2+ H (Negative) Urine Nitrite Positive A (Negative) Urine Bilirubin Negative (Negative) Urine Urobilinogen Negative (Negative) Ur Leukocyte Esterase 3+ H (Negative) Urine WBC (Auto) >30 H (0-5) /hpf Urine RBC (Auto) 0-4 (0-4) /hpf U Hyaline Cast (Auto) 0 (0-5) /lpf U Epithel Cells (Auto) 0-5 (0-5) /lpf Urine Bacteria (Auto) 1+ H (Negative) Diagnostic Findings CT abd pelvis IV con only CLINICAL HISTORY: Severe abdominal and back pain with fever. COMPARISON STUDY: February 01, 2020 TECHNIQUE: The patient was scanned in a dynamic helical fashion during i ntravenous administration of 94 cc of Optiray 320. A dose lowering technique was utilized adhering to the principles of ALARA. CT DOSE: 314.60 mGy.cm FINDINGS: Lower chest: The heart is normal in size and configuration, without pericardial effusion. The lung bases and pleural spaces are clear. Liver: There is a 4 cm right lobe hepatic mass demonstrating peripheral nodular enhancement. This likely represents a hemangioma. Gallbladder: Unremarkable. Spleen: Normal in size and attenuation. Pancreas: Unremarkable. Adrenal glands: Unremarkable. Kidneys: There is a 2 mm lower pole nonobstructing right renal calculus. There is subtle right-sided uroepithelial enhancement. There is right-sided ureteral dilatation. There is a 17 mm ureterocele. No obstructing ureteral calculi are visualized. Clinical correlation regards to an upper tract urinary infection is recommended. Bowel: There are no transition zones to indicate bowel obstruction. There is no evidence of acute diverticulitis. There is fecal retention suggesting constipation. The appendix is not visualized with certainty. There is no convincing evidence of acute appendicitis given the limitations of a study performed without oral contrast. Peritoneum: There is no intraperitoneal free air or abdominal ascites. Vasculature: The abdominal aorta is normal in course and caliber. Adenopathy: None. Pelvic viscera: There is a right-sided ureterocele. There is gas present within the bladder likely iatrogenic. Skeletal structures: There is evidence of hip dysplasia. There is chronic subluxation of the left hip. There is chronic destruction of the left femoral head. There is an old left ischio pubic ring fracture. There is a thoracolumbar levoscoliosis. IMPRESSION: 1. No evidence of bowel obstruction. No evidence of free air 2. Right-sided nephrolithiasis 3. 4 cm right lobe hepatic mass likely representing a hepatic hemangioma 4. Right-sided ureterocele. Mild right ureteral dilatation. Mild right-sided perinephric stranding with mild uroepithelial enhancement. Clinical correlation in regards to an upper tract urinary tract infection is recommended. 5. Moderate fecal load suggesting constipation ACT 112: Negative or not required by law. Electronically signed by: Bull Robins M.D. 04/27/2020 12:00 PM Dictated: 04/27/20 1150 Transcribed: 04/27/20 1150 Code Status & VTE Plan Code Status FULL VTE Prophylaxis Plan VTE Prophylaxis will be ordered: Yes PG Care Time/CCT Total # of Minutes Spent Total Time Spent with Patient: Total time spent is greater than 50% in coordination of care (as documented) at patient's floor/unit and/or counseling patient: Coding Level of Care Code 73765 Initial Inpt Care Lvl 3 Diagnoses Pyelonephritis N12 Lupus L93.0 Lupus erythematosus form: unspecified Neurogenic bladder N31.9 Transverse myelitis G37.3 (1) Lupus Lupus erythematosus form: unspecified Qualified Code(s): L93.0 - Discoid lupus erythematosus
[2020-04-27] MEDS ORDERED: DOCUSATE SODIUM 100 MG CAP PO PRN (14:03)
[2020-04-27] MEDS ORDERED: POTASSIUM CHLORIDE 20 MEQ TABCR PO STA (14:03)
[2020-04-27] MEDS ORDERED: ONDANSETRON INJ 2 MG/ML 2 ML VIAL IV PRN (14:03)
[2020-04-27] MEDS ORDERED: azaTHIOprine 25 MG TAB PO SCH (14:03)
[2020-04-27] MEDS ORDERED: ENOXAPARIN INJ 40 MG/0.4 ML SYR SQ SCH (14:03)
[2020-04-27] MEDS ORDERED: OXYCODONE HCL IR 5 MG TAB (IMMEDIATE RELEASE) PO PRN (14:03)
[2020-04-27] MEDS: LACTATED RINGER'S 1,000 ML IV SCH ×2 (14:15→22:03)
[2020-04-27] MEDS: ACETAMINOPHEN 325 MG TAB PO PRN ×2 (14:35→22:07)
[2020-04-27] MEDS: HYDROXYCHLOROQUINE SULFATE 200 MG TAB PO SCH (15:02)
[2020-04-27] MEDS: lisinopriL 5 MG TAB PO SCH (15:05)
[2020-04-27] MEDS: HEPARIN SOD 5,000 UNIT/0.5 ML VIAL SC SCH (20:38)
[2020-04-27] MEDS: METOPROLOL SUCC 25MG EXT REL TAB PO SCH (22:07)
[2020-04-28 09:42] LABS: Basophils # (auto) 0.04 K/uL (0-0.2); Basophils % (auto) 0.3 %; Eosinophils # (auto) 0.13 K/uL (0-0.5); Eosinophils % (auto) 0.8 %; Hematocrit (blood only) 29.8 % (37-47); Hemoglobin 9.7 g/dL (12.0-16.0); Immature Granulocytes # (auto) 0.09 K/uL (0.00-0.02); Immature Granulocytes % (auto) 0.6 %; Lymphocytes # (auto) 1.27 K/uL (1.2-3.4); Lymphocytes % (auto) 8.2 %; Mean Corpuscular Hemoglobin 28.7 pg (25-34); Mean Corpuscular Hgb Conc 32.6 g/dL (32-36); Mean Corpuscular Volume 88.2 fL (80-100); Mean Platelet Volume 9.7 fL (7.4-10.4); Neutrophils # (auto) 12.55 K/uL (1.4-6.5); Neutrophils % (auto) 81.1 %; Platelet Count 343 K/uL (130-400); RDW Standard Deviation 48.6 fL (36.4-46.3); Red Blood Count 3.38 M/uL (4.2-5.4); White Blood Count 15.48 K/uL (4.8-10.8)
[2020-04-28] MEDS: HEPARIN SOD 5,000 UNIT/0.5 ML VIAL SC SCH ×2 (10:10→22:40)
[2020-04-28 10:24] LABS: BUN Creatinine Ratio 28.3 (10-20); Calcium 8.3 mg/dl (8.5-10.1); Creatinine Clr Calc Pharmacy 65.2 ml/min; Est GFR (African American) 115.9; Potassium 3.8 mmol/L (3.5-5.1)
[2020-04-28] MEDS ORDERED: cefTRIAXone SODIUM 1,000 MG in DEXTROSE 5% 50 ML IV SCH (12:00)
[2020-04-28] MEDS: cefTRIAXone SODIUM 2,000 MG in DEXTROSE 5% 50 ML IV SCH (12:01)
[2020-04-28] MEDS: HYDROXYCHLOROQUINE SULFATE 200 MG TAB PO SCH (14:21)
[2020-04-28] MEDS: lisinopriL 5 MG TAB PO SCH (14:22)
[2020-04-28] MEDS: FENOFIBRATE NANOCRYSTALLIZED 145 MG TABLET PO SCH (15:14)
--- NOTE | 2020-04-28 16:24 | Hospitalist Progress Note ---
Date of Service April 28, 2020 Assessment & Plan (1) Pyelonephritis: 34yo female with history of Lupus, transverse myelitis with T10 Paraplegia, Neurogenic bladder presenting with pyelonephritis. Patient febrile, tachycardic with leukocytosis. +UA. CT with right sided ureterocele, dilation. Mild perinephric stranding. Prior cultures with palomares-sensitive E. coli Urine cultures are showing gram-negative bacilli not yet speciated or sensitized -Patient continues on ceftriaxone 2gm IV daily, previously with pansensitive E. coli -LR at 125mL/hr x 2 liters -Consider Urology consultation, to comment on right-sided nephrolithiasis in the face of recurrent infections in the right-sided ureterocele (2) Lupus: Chronic. Stable without acute flare. Patient had a renal biopsy in the past with nephritis. She follows with Dr. Horvath -Continue Hydroxychloroquine -We will hold azathioprine face infection (3) Neurogenic bladder: Patient did have a chronic indwelling Millan in the past for many years. Currently she is self-catheterizing routinely without difficulty. She reports drinking 2-3 liters per day as well as a solution of lemon water to help acidify her urine (12oz/day 5days/week). -Continue to straight cath as needed F/E/N - LR at 125mL/hr x 2 L, monitor electrolytes, BMP in AM, Regular diet as tolerated, Colace PRN - stool noted on CT Ppx - Heparin BID for DVT PPX Code- Full (4) Transverse myelitis: Admission and Anticipated Discharge Date Admission Date: April 27, 2020 Subjective pt still has chills, she overall is feeling better. she has had no recent flares of lupus Review of Systems Review of Systems: Mild to moderate distress and fatigue no headache, blurry or double vision no speech or swallowing issues no chest pain, pressure or palpitations no shortness of breath, cough or wheezes no abdominal pain, nausea or vomiting, diarrhea or constipation Patient has sensation of normal urination no focal joint pain or swelling no back pain, CVA tenderness or radicular pain no bruising, bleeding or rashes no focal signs of weakness or numbness or altered sensation no complaints of anxiety or depression. Physical Exam Physical Exam: The patient appeared well nourished and normally developed. Vital signs as documented. Head exam is normocephalic atraumatic no scleral icterus Neck is without JVD, thyromegaly, or carotid bruits. Lungs are clear to auscultation, no focal loss of breath sounds Cardiac exam, Rhythm is regular.. No murmurs, rubs or gallops. Abdominal exam reveals normal bowel sounds, soft non tender, no masses Extremities are nonedematous and both pedal pulses are present Neurologic exam is alert and oriented, prehospital paraplegia still present without changes Skin is without bruises or rashes Psychologically is without concerns for anxiety or depression. Results & Data Results & Data ([facility]) Vital Signs (Past 12 Hours) Vital Signs Temp Pulse Pulse Resp BP Pulse Ox 04/28/20 15:22 103 H 04/28/20 15:08 99.0 F 118 H 20 117/65 100 04/28/20 11:36 99.1 F 93 H 20 108/74 100 04/28/20 07:40 113 H 04/28/20 07:32 99.1 F 101 H 20 111/69 98 PG Care Time/CCT Total # of Minutes Spent Total Time Spent with Patient: Total time spent is greater than 50% in coordi nation of care (as documented) at patient's floor/unit and/or counseling patient: Coding Level of Care Code 03168 Subseq Hosp Care Lvl 2 Diagnoses Pyelonephritis N12 Lupus L93.0 Lupus erythematosus form: unspecified Neurogenic bladder N31.9 Transverse myelitis G37.3 (1) Lupus Lupus erythematosus form: unspecified Qualified Code(s): L93.0 - Discoid lupus erythematosus
--- NOTE | 2020-04-28 19:47 | Urology Consultation ---
Date of Consultation April 28, 2020 Assessment & Plan (1) Pyelonephritis: Patient with multiple chronic medical issues including chronic immunologic issues with lupus, T10 Paraplegia, Neurogenic bladder, and immunocompromise state. Was seen in the hospital approximately 2 months ago with similar episode but had not yet transferred care to our practice. Has not followed up. Patient presenting with UTI, ill feelings, deconditioning and pyelonephritis. Patient previously had indwelling catheter now self catheterizes. Has previously had issues with colonization as well as stones. Imaging is showing a likely ureterocele with hydronephrosis and small stone within kidney. No major obstruction issues. Patient has a low-grade fever of 37.9 when last checked. Has not had a true fever since last evening. Patient is slowly improving. Has been tolerating broad-spectrum antibiotics. Is being treated for presumed E. coli infection. Is awaiting full culture. Plan to continue with supportive care. Will need to set up for likely ureteroscopy and cystoscopy and assessment in the next 2 to 3 weeks after completing course of antibiotics and monitoring. If patient continues to have febrile episodes over 38 5. Will need to consider stent versus resection versus other intervention. We will continue to monitor. (2) Neurogenic bladder: As above. History of Present Illness Attending Physician: Pablo Fuller MD History of Present Illness New consultation for patient with UTI/Pyelo, discomfort, and ill feelings. Patient developed sudden onset of pain into flank going down and radiating into groin and back in waves comes and goes. Can be severe at times. Patient is a long history of neurogenic bladder and does intermittent catheterization. Previously had an indwelling catheter. Patient has multiple chronic medical issues and an immunocompromise state. Patient on imaging found to have likely a ureterocele with dilation of ureter on right. Possible upper tract infection Discussed and reviewed patient's family history for any history of issues, infections, and disease. Also, discussed patient's medical/surgery history especially related to any history of urinary issues or stone disease. Patient was admitted and is undergoing observation with broad spectrum IV antibiotics. Allergies Allergy/AdvReac Type Severity Reaction Status Date / Time Fish Containing Products Allergy Severe ANAPHYLAXIS Verified 04/27/20 12:27 peanut Allergy Severe ANAPHYLAXIS Verified 04/27/20 12:27 salmon oil Allergy Severe ANAPHYLAXIS Verified 04/27/20 12:27 shellfish derived Allergy Severe ANAPHYLAXIS Verified 04/27/20 12:27 adhesive Allergy Intermediate SKIN GETS Verified 04/27/20 12:27 RED AND PAINFUL latex Allergy Intermediate SKIN GETS Verified 04/27/20 12:27 RED AND PAINFUL mold Allergy Intermediate SNEEZING Verified 04/27/20 12:27 AND COUGHING ertapenem Allergy Unknown HIVES Unverified 04/27/20 12:27 noe Allergy Verified 04/27/20 12:27 sulfamethoxazole AdvReac Mild Gastrointestinal Verified 04/27/20 12:27 [From Bactrim] Upset trimethoprim [From Bactrim] AdvReac Mild Gastrointestinal Verified 04/27/20 12:27 Upset milk AdvReac Unknown GI SYMPTOMS Verified 04/27/20 12:27 Dust Allergy Intermediate SNEEZING Uncoded 04/27/20 12:27 AND COUGHING carmichael noe Allergy Intermediate lips and Uncoded 04/27/20 12:27 mouth swell Home Medications Home Medications Medication Instructions Recorded Confirmed Type aspirin 81 mg PO DAILY PRN 02/01/20 04/27/20 History azathioprine 75 mg PO DAILY@139902/01/20 04/27/20 History calcium carbonate-vitamin D3 1 tab PO DAILY@139902/01/20 04/27/20 History [Oysco 500/D] cholecalciferol (vitamin D3) 25 mcg PO DAILY@139902/01/20 04/27/20 History [Vitamin D3] fenofibrate micronized 200 mg PO DAILY@139902/01/20 04/27/20 History hydroxychloroquine 100 mg PO DAILY@139902/01/20 04/27/20 History lisinopril 5 mg PO DAILY@139902/01/20 04/27/20 History metoprolol succinate 12.5 mg PO DAILY@222902/01/20 04/27/20 History multivitamin 1 tab PO DAILY@139902/01/20 04/27/20 History potassium chloride 20 meq PO DAILY@139902/01/20 04/27/20 History ferrous sulfate [iron] 325 mg PO DAILY@139904/27/20 04/27/20 History Patient History Medical History Lupus Neurogenic bladder Transverse myelitis T10 paraplegia Surgical History Status post skin flap graft Family History Other Family history non-contributory Social History Smoking Status: Never smoker Second Hand Exposure: No; Do You Dip or Chew Tobacco: No; Tobacco Cessation Education Requested by Patient: No Hx Alcohol Use: No Hx Substance Use: No Preferred Language: Sami Communication Ability: Effective Patient Ambassador Required: No Beliefs That Will Affect Care: None Current Living Situation: Alone Other Information That Helps Us Care for You: No Feels Safe at Home: Yes Safety Concerns: Feels Safe At This Time Assistive Devices: Wheelchair Review of Systems Review of Systems: All systems reviewed & are unremarkable except as noted in HPI & below Physical Exam Physical Exam: General: Alert in no acute distress. Paraplegia. Chronic Medical issues. HEENT: Normocephalic. Inspection normal. Cranial Nerves 2-12 Grossly intact with some hearing issues. Normal inspection of face. Normal inspection of neck. Psychologic: Normal affect. Baseline issues with memory. Respiratory: Nonlabored. No use of accessory muscles. No tachypnea or dyspnea. Cardiovascular: No tachycardia Skin: [place] and Dry. No rashes or visible lesions. Extremities/Lymphatics: Minor Mobility issues. Slow Gait. Abdomen: Soft Non-distended. No rebound or guarding. Results & Data ([facility]) Vital Signs (Past 12 Hours) Vital Signs Temp Pulse Pulse Resp BP Pulse Ox 04/28/20 18:46 37.9 C H 107 H 20 111/71 99 04/28/20 15:22 103 H 04/28/20 15:08 37.2 C 118 H 20 117/65 100 04/28/20 11:36 37.3 C 93 H 20 108/74 100 PG Care Time/CCT Total # of Minutes Spent Total Time Spent with Patient: Total time spent is greater than 50% in coordination of care (as documented) at patient's floor/unit and/or counseling patient: Coding Level of Care Code 50065 Inpt Consult Level 5 Diagnoses Pyelonephritis N12 Neurogenic bladder N31.9
[2020-04-28] MEDS: POTASSIUM CHLORIDE 20 MEQ TABCR PO SCH (22:40)
[2020-04-28] MEDS: METOPROLOL SUCC 25MG EXT REL TAB PO SCH (22:41)
[2020-04-29] MEDS: POTASSIUM CHLORIDE 20 MEQ TABCR PO SCH (08:12)
[2020-04-29] MEDS: HEPARIN SOD 5,000 UNIT/0.5 ML VIAL SC SCH (10:26)
[2020-04-29] MEDS: cefTRIAXone SODIUM 2,000 MG in DEXTROSE 5% 50 ML IV SCH (11:54)
--- NOTE | 2020-04-29 12:16 | Urology Progress Note ---
Date of Service April 29, 2020 Assessment & Plan (1) Pyelonephritis: (2) Neurogenic bladder: 34yo F with history of Lupus, transverse myelitis with T10 Paraplegia, and Neurogenic bladder admitted with pyelonephritis. -Doing well, clinically progressing with antibiotic therapy -She remains afebrile -Continue with supportive measures and IV antibiotics for pansensitive E. coli -No acute intervention indicated at this time -Continue Millan catheter -Will continue to follow while inpatient Admission and Anticipated Discharge Date Admission Date: April 27, 2020 Subjective 34yo F with history of Lupus, transverse myelitis with T10 Paraplegia, and Neurogenic bladder admitted with pyelonephritis. Patient reports feeling much better today She is currently OOB in wheelchair Denies fevers or chills Tolerating PO diet without nausea or vomiting Millan catheter intact, draining clear, yellow urine Denies any pain or discomfort Continues on IV abx Chart review: Afebrile WBC (10/) 15.48 Hgb (10/5)- 9.7 Cr (/)- 0.77 Urine culture- E.coli - On IV Ceftriaxone Blood Culture -Prelim no growth Review of Systems Constitutional: as per Subjective / HPI Gastrointestinal: as per Subjective / HPI Genitourinary: as per Subjective / HPI Neurologic: as per Subjective / HPI Physical Exam Constitutional: + thin; no acute distress Paraplegia Neck: normal visual inspection Respiratory: normal respiratory effort and able to speak in complete sentences Gastrointestinal (Abdomen): Inspection/Auscultation: abdomen normal to inspection; abdomen not distended Musculoskeletal: Head/Neck/Chest: normocephalic Skin: Warm and dry, Normal color to visualized skin areas Neurologic: awake; not confused Psychiatric: Orientation: alert, oriented x 3 and cooperative Results & Data ([facility]) Vital Signs (Past 12 Hours) Vital Signs Temp Pulse Pulse Resp BP Pulse Ox 04/29/20 11:09 37.0 C 109 H 20 130/76 99 04/29/20 07:25 85 04/29/20 06:43 36.9 C 90 20 99/67 L 99 04/29/20 02:53 37.4 C 92 H 20 109/72 100 04/29/20 00:31 103 H PG Care Time/CCT Total # of Minutes Spent Total Time Spent with Patient: Total time spent is greater than 50% in coordination of care (as documented) at patient's floor/unit and/or counseling patient: Coding Level of Care Code 29461 Subseq Hosp Care Lvl 2 Diagnoses Pyelonephritis N12 Neurogenic bladder N31.9
[2020-04-29] MEDS: HYDROXYCHLOROQUINE SULFATE 200 MG TAB PO SCH (14:01)
[2020-04-29] MEDS: lisinopriL 5 MG TAB PO SCH (14:02)
[2020-04-29] MEDS: FENOFIBRATE NANOCRYSTALLIZED 145 MG TABLET PO SCH (14:02)
--- NOTE | 2020-04-29 16:45 | Discharge Summary ---
Date of Service April 29, 2020 Admission HPI Per Admitting Provider Dot Quezada is a pleasant 34yo C female with history of Lupus, transverse myelitis at T10 with paraplegia, neurogenic bladder. Patient self-caths 3-4 times daily. Patient developed a fever on . Symptoms improved with increased fluid intake and Tylenol. Last night she became febrile again to 102.3, +rigors, +back pain and decreased UOP which prompted her to come to the ER. On arrival patient febrile, tachycardic. Blood pressure stable. Mild pain in the back. No additional complaints. Patient denies CP/SOB/cough. No recent travel. No Covid-19 exposure. ER Course: Ceftriaxone 1gm Principal Diagnosis E. coli pyelonephritis Ureterocele Discharge Exam The patient appeared well nourished and normally developed. His baseline paraplegia Vital signs as documented. Head exam is normocephalic atraumatic no scleral icterus Lungs are clear to auscultation, no focal loss of breath sounds Cardiac exam, Rhythm is regular.. No murmurs, rubs or gallops. Neurologic exam patient has baseline paraplegia she feels back to her usual state Skin is without bruises or rashes Psychologically is without concerns for anxiety or depression. Discharge Data Allergies Allergy/AdvReac Type Severity Reaction Status Date / Time Fish Containing Products Allergy Severe ANAPHYLAXIS Verified 04/27/20 12:27 peanut Allergy Severe ANAPHYLAXIS Verified 04/27/20 12:27 salmon oil Allergy Severe ANAPHYLAXIS Verified 04/27/20 12:27 shellfish derived Allergy Severe ANAPHYLAXIS Verified 04/27/20 12:27 adhesive Allergy Intermediate SKIN GETS Verified 04/27/20 12:27 RED AND PAINFUL latex Allergy Intermediate SKIN GETS Verified 04/27/20 12:27 RED AND PAINFUL mold Allergy Intermediate SNEEZING Verified 04/27/20 12:27 AND COUGHING ertapenem Allergy Unknown HIVES Unverified 04/27/20 12:27 noe Allergy Verified 04/27/20 12:27 sulfamethoxazole AdvReac Mild Gastrointestinal Verified 04/27/20 12:27 [From Bactrim] Upset trimethoprim [From Bactrim] AdvReac Mild Gastrointestinal Verified 04/27/20 12:27 Upset milk AdvReac Unknown GI SYMPTOMS Verified 04/27/20 12:27 Dust Allergy Intermediate SNEEZING Uncoded 10/04/20 12:27 AND COUGHING carmichael noe Allergy Intermediate lips and Uncoded 04/27/20 12:27 mouth swell Consultations 04/27/20 12:04 ED Decision to Admit Stat 04/28/20 16:28 Consult Urology Routine Ordered Studies 04/27/20 10:22 CT abd pelvis IV con only Stat Hospital Course (1) Pyelonephritis: 34yo female with history of Lupus, transverse myelitis with T10 Paraplegia, Neurogenic bladder presenting with pyelonephritis. Patient febrile, tachycardic with leukocytosis. +UA. CT with right sided ureterocele, dilation. Mild perinephric stranding. Prior cultures with palomares-sensitive E. coli Urine cultures are showing E. coli sensitive to Cipro -Patient complete outpatient treatment Sepsis was ruled out -Consider Urology consultation, to follow-up as an outpatient for definitive treatment of right-sided nephrolithiasis in the face of recurrent infections in the right-sided ureterocele (2) Lupus: Chronic. Stable without acute flare. Patient had a renal biopsy in the past with nephritis. She follows with Dr. Horvath -Continue Hydroxychloroquine plus azathioprine (3) Neurogenic bladder: Patient did have a chronic indwelling Millan in the past for many years. Currently she is self-catheterizing routinely without difficulty. She reports drinking 2-3 liters per day as well as a solution of lemon water to help acidify her urine (12oz/day 5days/week). -Continue to straight cath as needed Code- Full (4) Transverse myelitis: Total Time Total Time Spent Total Time Spent (In Minutes): It required greater than 30 minutes to prepare this patient for discharge Discharge Plan Discharge Items Patient Disposition: Home - Self-Care Reason For Visit: PYELONEPHRITIS Discharge Diagnosis: pyelonephritis Activity: Resume your previous activity Non-emergency contact: Primary Care Provider and Urologist Call non-emergency contact if: you have any medication questions and your symptoms worsen Follow-up/Referrals: Alexandria Andrea PA-C [Primary Care Provider] - Diet: Regular Addtl Attending Provider Instructions: you have been diagnosed with an E Coli urinary infection, please complete all of your antibiotics and follow up with the urology office Pending Studies at Discharge: No Stand-Alone Forms: My Language Systems, Smoking Cessation Medications and DC Order Prescriptions: New ciprofloxacin HCl 500 mg tablet 500 mg PO BID Qty: 14 RF: 0 Continued ferrous sulfate [iron] 325 mg (65 mg iron) Tablet 325 mg PO DAILY@1400 RF: 0 multivitamin Tablet 1 tab PO DAILY@1399 RF: 0 azathioprine 50 mg tablet 75 mg PO DAILY@1400 RF: 0 fenofibrate micronized 200 mg capsule 200 mg PO DAILY@1400 RF: 0 aspirin 81 mg Tablet,Delayed Release (Dr/Ec) 81 mg PO DAILY PRN (Reason: traveling) RF: 0 lisinopril 5 mg tablet 5 mg PO DAILY@1400 RF: 0 metoprolol succinate 25 mg tablet extended release 24 hr 12.5 mg PO DAILY@2230 RF: 0 hydroxychloroquine 200 mg tablet 100 mg PO DAILY@1400 RF: 0 cholecalciferol (vitamin D3) [Vitamin D3] 25 mcg (1,000 unit) Capsule 25 mcg PO DAILY@1399 RF: 0 calcium carbonate-vitamin D3 [Oysco 500/D] 500 mg(1,250mg) -200 unit tablet 1 tab PO DAILY@1400 RF: 0 potassium chloride 20 mEq tablet extended release 20 meq PO DAILY@1400 RF: 0 Discharge Orders: Discharge Order (Routine); Ordered 04/29/20 Ordered By: Pablo Fuller Admission Data Admit Date/Time: 04/27/20 12:47 Attending Provider: Pablo Fuller Admit Provider: Concepción Caldwell Primary Care Provider: Alexandria Andrea Other Providers: Concepción Caldwell ; Marcelo Wright Other Interventions: Discharge Summary Assessment (RN) Last Done: 04/29/20 14:33 Coding Level of Care Code D/C Day Management >30 mins Diagnoses Pyelonephritis N12 Lupus L93.0 Lupus erythematosus form: unspecified Neurogenic bladder N31.9 Transverse myelitis G37.3
== END 2020-04-29 17:15 | disposition home or self-care (01) ==
LOC: ED 10:14 → INTOOBSV 12:47 → 2W 12:47 → SUATTDRO 12:47 → 2W 13:27